=== PATIENT | male | born 2005 | race African-American/Black ===

== ENCOUNTER 2024-01-31 17:45 | Emergency (ER) | payer MEDICAID, SELFPAY ==
[2024-01-31 17:56] VITALS: BP 114/71; PULSE 97; RESP 18; TEMP 36.4; O2SAT 97; BMI 25.1
[2024-01-31] MEDS: Diphth,Pertus(ACell),Tet Adult 0.5 ML SYRINGE IM (18:22)
--- NOTE | 2024-01-31 18:27 | ED.WOUNDLAC ---
HPI - Wound/Laceration General Chief Complaint: Wound/Laceration Stated Complaint: finger lac Time Seen by Provider: 01/31/24 18:26 Source: patient and RN notes reviewed Mode of arrival: ambulatory Limitations: no limitations History of Present Illness ED Provider: Karly Martinez PA-C HPI narrative: This is a 18 year old male presents emergency complaints of right 2nd finger laceration which occurred just prior to arrival. Patient states that he was attempting to open up a door that was being held closed by a knife when suddenly the door open in the knife jabbed him into his right 2nd digit. He states that the area immediately start bleeding. He is unsure when his last tetanus shot was. Denies taking any medications prior to his arrival. Denies any numbness, tingling or weakness. He is right-handed. No other complaints or concerns at this time. Onset (ago): hour(s) Place: home Patient tetanus UTD: No Context: accidental Associated symptoms: none Related Data Allergies Allergy/AdvReac Type Severity Reaction Status Date / Time No Known Allergies Allergy Verified 01/31/24 17:57 Review of Systems Review of Systems: Yes all other systems are reviewed and are negative Constitutional: Constitutional: Reports as per [facility] Social History Social History Advance Directives: No Advance Directives Information Provided: No Do you have a plan to hurt others: No Plan Physical Exam Vital Signs: Vital Signs: Last Vital Signs Temp 97.6 F 01/31/24 18:33 Pulse 97 01/31/24 18:33 Resp 18 01/31/24 18:33 BP 114/71 01/31/24 18:33 Pulse Ox 97 01/31/24 18:33 O2 Del Method Room Air 01/31/24 18:33 BMI result Body Mass Index 25.1 Const: General: cooperative, comfortable and no acute distress Orientation/consciousness: patient oriented x3 Limitations: no limitations HEENT: Head: Yes normal to inspection, Yes normocephalic and Yes atraumatic Ears: hearing grossly normal bilaterally General nose exam: Normal external nose present Face and sinus: Yes normal facial exam Mouth: Normal oral and palatal mucosa present, oropharynx normal and moist mucous membranes Throat: Yes posterior oropharynx normal Eyes: General: appearance normal, both eyes and all related structures Eyelids: Yes eyelids normal Conjunctivae: conjunctivae normal Sclerae: sclerae normal Pupils: Equal, round and reactive pupils present EOM: EOMs intact bilaterally Neck: Neck: Yes normal visual inspection, Yes full ROM and Yes no lymphadenopathy Lymphatic: no lymphadenopathy noted Chest: Chest palpation & inspection: normal inspection of the chest Resp: Effort & Inspection: normal respiratory effort and able to speak in complete sentences Auscultation: clear to auscultation bilaterally, no crackles, no rales, no rhonchi and no wheezes Cardio: Rate: regular rate Rhythm: regular rhythm Heart sounds: S1 normal heart sound present and S2 normal heart sound present GI: Inspection: Yes normal to inspection Skin: Other: There is a 1 cm superficial laceration noted overlying the PIP of the right 2nd digit. Patient has full range of motion of the digit able to flex extend at the DIP, PIP. Able to make a fist without difficulty. Strong radial pulse. Distal sensation circulation intact. No active bleeding or surrounding erythema or warmth. General skin exam: no rashes or lesions noted Trauma: no lacerations or abrasions Wounds: no wounds Neuro: General: patient oriented x3 and moves all extremities Cranial nerves: Yes Equal, round and reactive pupils present Extrem: General: Yes normal to inspection Right upper extremity: normal to inspection Left upper extremity: normal to inspection Right lower extremity: normal to inspection Left lower extremity: normal to inspection Medications Administered Discontinued Medications Generic Name Dose Route Start Last Admin Trade Name Freq PRN Reason Stop Dose Admin Diphtheria/Tetanus/Acell Pertussis 0.5 ml 01/31/24 18:18 01/31/24 18:22 Diphth,Pertus(Acell),Tet Adult 0.5 Ml Syringe IM 01/31/24 18:19 0.5 ml .ONCE ONE Administration Medical Decision Making Medical Decision Making [facility] Narrative: This is a 18-year-old male who presents emergency department with complaints of right 2nd digit laceration which occurred just prior to arrival. This was an accidental injury. Right 2nd digit with superficial laceration. This area was cleansed, and repaired using Dermabond, see procedure note for further detail. Patient tolerated procedure well. Updated tetanus in the department today. Patient given return precautions. He has full range of motion of the finger, therefore tendon involvement especially due to superficial abrasion less likely. Finger placed in finger splint to prevent flexion of the finger to help heal. Advised to only wear this for the next 24 hours and as needed. He understands and agrees with plan. Patient stable for discharge. Differential Diagnosis Differential Diagnoses: The differential diagnosis associated with the presentation includes Abrasion, contusion, laceration Procedures Laceration Laceration 1: Site: hand Side (If applicable): right Size (cm): 1 Description: linear Depth: simple, single layer Pre-repair: wound explored and irrigated extensively Skin layer closed with: other (Dermabond) Orthopedic Splinting/Casting Injury #1: Side: right Upper Extremity Injury Location: finger Upper Extremity Immobilizer: finger (other) Discharge Plan Discharge Clinical Impression: Laceration Patient Disposition: Home, Self-Care Instructions: Skin Adhesive Care (ED) Additional Instructions: You were seen in the emergency department for a laceration to your right finger. We repaired this laceration to your skin glue. Keep area clean and dry. Watch for any signs of infection including but not limited to increased redness, swelling, drainage from the area. We applied a finger splint to your finger to prevent bending your finger for the first 24 hours as the wound continues to heal. If any new or worsening symptoms occur including but not limited to symptoms above, please return for re-evaluation. We updated your tetanus shot in the department. Stand Alone Forms: Work/School Release Interventions: ED Discharge Assessment Last Done: 01/31/24 18:33 Discharge Date/Time: 01/31/24 18:34 Print Language: Burundian
[2024-01-31 18:33] VITALS: BP 114/71; PULSE 97; RESP 18; TEMP 36.4; O2SAT 97
== END 2024-01-31 18:34 | disposition home or self-care (01) ==
PROVIDERS: Emergency Provider Emergency Medicine
DX: S61.210A Laceration without foreign body of right index finger without damage to nail, initial encounter (principal); W26.0XXA Contact with knife, initial encounter; Y93.89 Activity, other specified; Y92.9 Unspecified place or not applicable; Y99.9 Unspecified external cause status; Z23 Encounter for immunization
CPT/HCPCS: 12001; 29130; 90471; 90715; 99282; 99284

== ENCOUNTER 2024-02-02 18:02 | Emergency (ER) | payer MEDICAID, SELFPAY ==
[2024-02-02 18:20] VITALS: BP 116/68; PULSE 63; RESP 18; TEMP 36.8; O2SAT 97; BMI 28.4
--- NOTE | 2024-02-02 18:20 | ED.UPPEXIN ---
HPI - Extremity Injury (Upper) General Chief Complaint: Extremity Injury, Upper Stated Complaint: ?R index finger infected Time Seen by Provider: 02/02/24 18:23 Source: patient Mode of arrival: ambulatory Limitations: no limitations History of Present Illness ED Provider: SATHISH SUAREZ PA-C HPI narrative: 18 year old male with no significant pmhx present to the ED today for evaluation of possible finger infection. Patient was evaluated at [facility] 2 days ago after sustaining laceration to his right 2nd digit. His tetanus was updated at that time, lac was closed with dermabond, and he was discharged home. He presents today with concern for infection. Reports minimal drainage from the site along with increased pain with movement of the finger. He has not been taking any OTC pain med at home. Denies fevers, chills. Related Data Previous Rx's ?Medication ?Instructions ?Recorded cephalexin 500 mg capsule 500 mg PO BID 7 days #14 caps 02/02/24 Allergies Allergy/AdvReac Type Severity Reaction Status Date / Time No Known Allergies Allergy Verified 02/02/24 18:24 Review of Systems Review of Systems: Constitutional: No fever, chills, fatigue, night sweats, weight changes ENT/Mouth: No ear pain, hearing loss, nasal congestion, sinus pain, rhinorrhea, sore throat Eyes: No eye pain, swelling, redness, vision changes, discharge Cardio: No chest pain, palpitations, [place], orthopnea, peripheral edema Pulm: No SOB, cough, sputum, wheezing, dyspnea, hemoptysis GI: No nausea, vomiting, hematemesis, abdominal pain, diarrhea, constipation, hematochezia, melena : No irregular bleeding, dysuria, frequency, urgency, hesitancy, hematuria, flank pain, urinary flow changes, urinary incontinence or retention MSK: No back pain, neck pain, joint pain, myalgias Skin: No lesions, rashes, +redness to right index finger Neuro: No weakness, numbness, paresthesias, LOC, dizziness, headache Psych: No anxiety/panic, depression, SI/HI, AH/VH All other systems reviewed and are negative. [facility] Past Medical History Attestation statement: The following information was validated with the patient. Source: old records reviewed and nursing notes reviewed Social History Social History Advance Directives: No Advance Directives Information Provided: No Do you have a plan to hurt others: No Plan Physical Exam Vital Signs: Vital Signs: Last Vital Signs Temp 98.2 F 02/02/24 18:37 Pulse 63 02/02/24 18:37 Resp 18 02/02/24 18:37 BP 116/68 02/02/24 18:37 Pulse Ox 97 02/02/24 18:37 O2 Del Method Room Air 02/02/24 18:37 BMI result Body Mass Index 28.4 Vital signs stable, afebrile Const: General: cooperative, healthy appearing, comfortable and no acute distress Orientation/consciousness: patient oriented x3 Limitations: no limitations HEENT: Head: Yes normal to inspection, Yes No palpable skull fracture present, Yes normocephalic and Yes atraumatic Eyes: General: appearance normal, both eyes and all related structures Neck: Neck: Yes normal visual inspection Resp: Effort & Inspection: normal respiratory effort and able to speak in complete sentences Auscultation: clear to auscultation bilaterally Cardio: Rate: regular rate Rhythm: regular rhythm Skin: Other: + healing 1 cm laceration intact with minimal amount of surrounding erythema. No dehiscence. No active drainage or bleeding. No streaking. No pointing. FROM intact to right finger with pain elicited on flexion. NV intact distally. Neuro: General: patient oriented x3 Course Course Course Narrative: 1829-- Laceration with minimal warmth and erythema. No fluctuance to suggest abscess. Will send patient home with Keflex. Advised to keep the area clean dry and intact. May apply bacitracin or Neosporin. Patient has remained stable throughout ED visit today. Discussed worrisome signs and symptoms and when to return to the ED. All questions answered at this time. Patient is agreeable with disposition and stable for discharge. Medical Decision Making Medical Decision Making MDM Narrative: 18 year old male with no significant pmhx present to the ED today for evaluation of possible finger infection. Vital signs stable. Afebrile. Patient is nontoxic appearing and in NAD. On exam, there is healing 1 cm laceration intact with minimal amount of surrounding erythema. No dehiscence. No active drainage or bleeding. No streaking. No pointing. FROM intact to right finger with pain elicited on flexion. NV intact distally. Differential diagnosis includes abrasion, laceration, cellulitis. unlikely tenosynovitis, fracture, osteomyelitis. Plan for discharge. Differential Diagnosis Differential Diagnoses: The differential diagnosis associated with the presentation includes as above Admission/Observation Not indicated. Tests considered The following testing was considered but not selected: I considered obtaining labs and repeat xr however patient with noted superficial skin infection, no concern for deeper systemic infection, no warranted at that time. Prescription Management I considered prescription management with: Antibiotic (keflex) Social Determinants Patient?s care significantly limited by Social Determinants of Health including: Other Social Determinant of Health Critical Care Time Critical Care Time Critical Care Time: No Discharge Plan Discharge Clinical Impression: Cellulitis Qualifiers: Site of cellulitis: extremity Site of cellulitis of extremity: finger Laterality: right Qualified Code(s): L03.011 - Cellulitis of right finger Patient Disposition: Home, Self-Care Instructions: Cellulitis (ED) Additional Instructions: You have a superficial skin infection. Keflex is an antibiotic that has been sent to your pharmacy for treatment. Take this as prescribed and do not skip any doses as this may cause infection to persist or worsen. You may also apply bacitracin or neosporin to the area. You can purchase this over the counter at [employer] or [employer]. Return with new or worsening symptoms. In the case of an emergency call 911. Prescriptions: New cephalexin 500 mg capsule 500 mg PO BID 7 Days Qty: 14 0RF Stand Alone Forms: Work/School Release Interventions: ED Discharge Assessment Last Done: 02/02/24 18:37 Discharge Date/Time: 02/02/24 18:38 Print Language: Cypriot
[2024-02-02 18:37] VITALS: BP 116/68; PULSE 63; RESP 18; TEMP 36.8; O2SAT 97
== END 2024-02-02 18:38 | disposition home or self-care (01) ==
PROVIDERS: Emergency Provider Emergency Medicine
DX: L03.011 Cellulitis of right finger (principal)
CPT/HCPCS: 99282; 99283

== ENCOUNTER 2024-02-09 01:51 | Emergency (ER) | payer MEDICAID, SELFPAY ==
--- NOTE | ~2024-02-09 | XR_ITS ---
EXAMINATION: XR HAND, RIGHT CLINICAL INFORMATION: Crush injury. COMPARISON: None available. TECHNIQUE: PA, lateral, and oblique views of the right hand. FINDINGS: No acute fracture or malalignment. Bone mineralization is normal. Joints appear well-preserved. Soft tissues are unremarkable. No erosions. XR/XR hand RT min 3V IMPRESSION: Normal radiographs of the right hand.
[2024-02-09 01:55] VITALS: BP 117/63; PULSE 69; RESP 16; TEMP 36.8; O2SAT 98; BMI 27.5
[2024-02-09 03:04] VITALS: BP 111/58; PULSE 56; RESP 12; TEMP 36.4; O2SAT 98
--- NOTE | 2024-02-09 03:41 | ED_ITS ---
HPI - Extremity Problem General Chief complaint: Extremity Injury, Upper Stated complaint: rt finger bump Time Seen by Provider: 02/09/24 03:40 Source: patient Mode of arrival: ambulatory Limitations: no limitations History of Present Illness ED Provider: zoe VASQUEZ Narrative: Patient apparently had laceration right index finger about a week ago while at work today heavy box fell on it complaining of pain and swelling laceration is intact Related Data Previous Rx's ?Medication ?Instructions ?Recorded cephalexin 500 mg capsule 500 mg PO BID 7 days #14 caps 02/02/24 Allergies Allergy/AdvReac Type Severity Reaction Status Date / Time No Known Allergies Allergy Verified 02/09/24 01:57 Review of Systems 2 Review of Systems: Yes all other systems are reviewed and are negative PMFSH Social History Social History Advance Directives: No Advance Directives Information Provided: Yes Do you have a plan to hurt others: No Plan Physical Exam 2 Vital Signs: Vital Signs: Last Vital Signs Temp 97.6 F 02/09/24 04:06 Pulse 56 02/09/24 04:06 Resp 12 02/09/24 04:06 BP 111/58 L 02/09/24 04:06 Pulse Ox 98 02/09/24 04:06 O2 Del Method Room Air 02/09/24 04:06 BMI result Body Mass Index 27.5 Extrem: Hand/finger images: 1. Soft tissue swelling with intact laceration no bony deformity Medical Decision Making Independent Interpretation I performed an independent interpretation of an: Plain X-Ray Interpretation: Negative for fracture Radiology Impression Discussion of test interpretation with radiology: I have reviewed the radiologist's reading. Discharge Plan Discharge Clinical Impression: Contusion of right index finger Patient Disposition: Home, Self-Care Instructions: Contusion in Adults (ED) Additional Instructions: Your x-rays negative for fracture Tylenol/Motrin for pain Prescriptions: No Action cephalexin 500 mg capsule 500 mg PO BID 7 Days Qty: 14 0RF Stand Alone Forms: Work/School Release Interventions: ED Discharge Assessment Last Done: 02/09/24 04:06 Discharge Date/Time: 02/09/24 04:07 Print Language: Lithuanian
[2024-02-09 04:06] VITALS: BP 111/58; PULSE 56; RESP 12; TEMP 36.4; O2SAT 98
== END 2024-02-09 04:07 | disposition home or self-care (01) ==
PROVIDERS: Emergency Provider Internal Medicine
DX: S60.021A Contusion of right index finger without damage to nail, initial encounter (principal); W20.8XXA Other cause of strike by thrown, projected or falling object, initial encounter; M79.644 Pain in right finger(s); Y93.9 Activity, unspecified; Y92.59 Other trade areas as the place of occurrence of the external cause; Y99.0 Civilian activity done for income or pay
CPT/HCPCS: 73130; 99283

== ENCOUNTER 2024-02-22 21:47 | Emergency (ER) | payer MEDICAID, SELFPAY ==
[2024-02-22 22:12] VITALS: BP 131/70; PULSE 67; RESP 16; TEMP 36.4; O2SAT 99; BMI 27.8
[2024-02-22 22:30] LABS: MANUAL DIFF FLAG NO
[2024-02-22 22:32] LABS: Basophils Absolute Auto 0.1 X10*3/uL (0.0-0.2); Basophils Percent Auto 1.3 % (0-2); Eosinophils Absolute Auto 0.1 X10*3/uL (0.0-0.4); Eosinophils Percent Auto 2.4 % (0-4); Hematocrit 42.6 % (42.0-52.0); Hemoglobin 15.1 g/dl (14.0-18.0); Lymphocytes Absolute Auto 2.1 X10*3/uL (1.2-4.9); Lymphocytes Percent Auto 44.9 % (20-40); Mean Corpuscular HGB Conc 35.4 g/dl (31.0-36.0); Mean Corpuscular Hemoglobin 29.7 pg (27.0-33.0); Mean Corpuscular Volume 83.9 fL (80.0-98.0); Mean Platelet Volume 12.6 fL (9.4-12.4); Monocytes Absolute Auto 0.5 X10*3/uL (0.1-1.2); Monocytes Percent Auto 10.8 % (2-11); Neutrophils Absolute Auto 1.9 x10*3/uL (2.0-8.3); Neutrophils Percent Auto 40.6 % (45-73); Platelet Count 215 X10*3/uL (160-400); Red Blood Count 5.08 X10*6/uL (4.60-5.80); Red Cell Distribution Width 12.5 % (11.0-16.0); White Blood Count 4.6 X10*3/uL (4.8-10.8)
[2024-02-22 22:33] LABS: Appearance Urine Clear; Color Urine Yellow; Glucose Urine UA Negative (Negative); Leukocyte Esterase Urine Negative (Negative); Nitrite Urine Negative (Negative); PH 7.5 (5.0-9.0); Specific Gravity - Urine 1.015 (1.005-1.025); Urine Blood Negative (Negative); Urine Ketones Negative (Negative); Urine Protein Negative (Neg-Trace)
[2024-02-22 22:46] LABS: Alanine Aminotransferase 19 U/L (0-40); Albumin Level 4.9 g/dL (3.5-5.0); Alkaline Phosphatase 79 U/L (39-117); Anion Gap 12 (12-20); Aspartate Amino Transferase 18 U/L (5-37); Bilirubin Total 0.8 mg/dL (0.0-1.0); Blood Urea Nitrogen 11 mg/dL (9-16); Calcium 9.7 mg/dL (8.4-10.2); Carbon Dioxide 30 mmol/L (22-29); Chloride 103 mmol/L (96-108); Creatinine Clr Calc Pharmacy 150.2; Estimated Glomerular Filt Rate > 60; Glucose Random 83 mg/dL (60-115); Lipase 24 U/L (8-78); Potassium 4.3 mmol/L (3.3-5.1); Sodium 141 mmol/L (135-145); Total Protein 7.8 g/dL (6.5-8.0)
--- NOTE | 2024-02-22 23:02 | ED.ABDPAIN ---
HPI - Abdominal Pain General Chief Complaint: Abdominal Pain Stated Complaint: Stomach Pain, Vomiting Time Seen by Provider: 02/22/24 22:40 Source: patient Mode of arrival: ambulatory Limitations: no limitations History of Present Illness ED Provider: KYLE HPI narrative: 18 yo male with no sig PMH vomited earlier today then went to work and ate chicken teriyaki and had more n/v and then some diarrhea. no travel, abx use, no fevers, all of his n/v/d and cramping started at once. He does not want IV or IV medications. Came from [facility]. MD elicited complaint: abdominal pain Pertinent past history: none Onset (ago): hour(s) (several) Pain Consistency: intermittent Location: diffuse Severity: mild Quality: cramping Radiation: none Migration to: no migration Exacerbating factors: eating Relieving factors: nothing Associated symptoms: nausea, vomiting and diarrhea Related Data Previous Rx's ?Medication ?Instructions ?Recorded cephalexin 500 mg capsule 500 mg PO BID 7 days #14 caps 02/02/24 ondansetron 4 mg disintegrating 4 mg PO Q8H PRN nausea and 02/22/24 tablet vomiting #20 tabs Allergies Allergy/AdvReac Type Severity Reaction Status Date / Time No Known Allergies Allergy Verified 02/22/24 22:12 Review of Systems Review of Systems Constitutional : No Weight loss, No Fever, No Chills ENT/Mouth : No sore throat, No Rhinorrhea Eyes: No Swelling, No Redness Cardiovascular : No Chest Pain, No SOB, NoEdema Respiratory : No Cough, No Sputum, No Wheezing Gastrointestinal : Positive Nausea, Positive Vomiting, positive Diarrhea, positive abdominal Pain, No Hematochezia, No Melena Genitourinary : No Dysuria, No Urinary Frequency, No Hematuria, No Urgency Musculoskeletal : No joint pain, No Myalgias, No Joint Swelling Skin : No Skin Lesions, No rash Neuro : No Weakness, No Numbness, No Dizziness, No Headache Psych : No Anxiety/Panic, No Depression All other systems reviewed and are negative. [facility] Past Medical History Attestation statement: The following information was validated with the patient. Source: old records reviewed Medical History No pertinent past medical history Social History Social History (Updated 02/22/24 @ 23:18 by Madeline [place], DO) Patient Tobacco Use Status: Never used Tobacco Physical Exam ED Vital Signs: Vital Signs - 24 hr 02/22/24 22:12 Temperature 97.6 F Pulse Rate 67 Respiratory Rate 16 Blood Pressure 131/70 Pulse Oximetry 99 Oxygen Delivery Method Room Air BMI result Body Mass Index 27.8 Appearance: Alert. Oriented X3. No acute distress. Eyes: Pupils equal, round and reactive to light. ENT: Pharynx normal. Neck: Normal inspection. Neck supple. CVS: Normal heart rate and rhythm. Pulses normal. Respiratory: No respiratory distress. Breath sounds normal. Abdomen: Soft and nontender. Skin: Skin warm and dry. Normal skin color. Normal skin turgor. Extremities: No lower extremity edema. No calf ttp Neuro: Oriented X 3. No motor deficit. No sensory deficit. Medical Decision Making Medical Decision Making [facility] Narrative: 18 yo male with no sig PMH works at [employer] had cramps n/v/d no travel or abx use is not toxic no fevers abdomen is benign - everything started at once no localized ttp doubt infection. At this time offered IV medications but he refused - will give zofran and immodium Differential Diagnosis Differential Diagnoses: The differential diagnosis associated with the presentation includes viral syndrome Admission/Observation Consideration of admission/observation: Escalation of care including admission/observation considered tolerating PO not toxic stable for DC Lab Data [facility] Lab Attestation statement: I reviewed the patient's lab results. 02/22/24 22:25 02/22/24 22:25 Labs: Lab Results 02/22/24 Range/Units 22:25 WBC 4.6 L (4.8-10.8) X10*3/uL RBC 5.08 (4.60-5.80) X10*6/uL Hgb 15.1 (14.0-18.0) g/dl Hct 42.6 (42.0-52.0) % MCV 83.9 (80.0-98.0) fL MCH 29.7 (27.0-33.0) pg MCHC 35.4 (31.0-36.0) g/dl RDW 12.5 (11.0-16.0) % Plt Count 215 (160-400) X10*3/uL MPV 12.6 H (9.4-12.4) fL Immature Gran % (Auto) 0.0 (0.0-0.4) % Neut % (Auto) 40.6 L (45-73) % Lymph % (Auto) 44.9 H (20-40) % [place] % (Auto) 10.8 (2-11) % Eos % (Auto) 2.4 (0-4) % Baso % (Auto) 1.3 (0-2) % Lymph # (Auto) 2.1 (1.2-4.9) X10*3/uL [place] # (Auto) 0.5 (0.1-1.2) X10*3/uL Eos # (Auto) 0.1 (0.0-0.4) X10*3/uL Baso # (Auto) 0.1 (0.0-0.2) X10*3/uL Abs Immat Gran (auto) 0.00 (0.00-0.03) X10*3/uL Absolute Neuts (auto) 1.9 L (2.0-8.3) x10*3/uL Absolute Nucleated RBC 0.000 (0.0-0.012) X10*3/uL Nucleated RBC % (auto) 0.0 (0.0-0.2) /100WBC Sodium 141 (135-145) mmol/L Potassium 4.3 (3.3-5.1) mmol/L Chloride 103 (96-108) mmol/L Carbon Dioxide 30 H (22-29) mmol/L Anion Gap 12 (12-20) BUN 11 (9-16) mg/dL Creatinine 0.91 (0.5-1.4) mg/dL Estim Creat Clear Calc 150.2 Estimated GFR > 60 Random Glucose 83 (60-115) mg/dL Calcium 9.7 (8.4-10.2) mg/dL Total Bilirubin 0.8 (0.0-1.0) mg/dL AST 18 (5-37) U/L ALT 19 (0-40) U/L Alkaline Phosphatase 79 (39-117) U/L Total Protein 7.8 (6.5-8.0) g/dL Albumin 4.9 (3.5-5.0) g/dL Lipase 24 (8-78) U/L Urine Color Yellow Urine Appearance Clear Urine pH 7.5 (5.0-9.0) Ur Specific [place] 1.015 (1.005-1.025) Urine Protein Negative (Neg-Trace) mg/dL Urine Glucose (UA) Negative (Negative) mg/dL Urine Ketones Negative (Negative) mg/dL Urine Blood Negative (Negative) Urine Nitrite Negative (Negative) Ur Leukocyte Esterase Negative (Negative) Influenza Type A (PCR) NEGATIVE (Negative) Influenza Type B (PCR) NEGATIVE (Negative) RSV RNA Qual (PCR) NEGATIVE (Negative) SARS-CoV-2 RNA (RT-PCR) NEGATIVE (Negative) Prescription Management I considered prescription management with: Other Discharge Plan Discharge Clinical Impression: Nausea vomiting and diarrhea Patient Disposition: Home, Self-Care Instructions: Acute Nausea and Vomiting (ED), Acute Diarrhea (ED) Additional Instructions: slight decrease in white blood cells likely due to virus can repeat with your doctor in 1 week bland diet for 24 hours stay hydrated drink plenty of fluids return for worsening symptoms or concerns - fevers, pain, bloody stools Prescriptions: New ondansetron 4 mg tablet,disintegrating 4 mg PO Q8H PRN (Reason: nausea and vomiting) Qty: 20 0RF No Action cephalexin 500 mg capsule 500 mg PO BID 7 Days Qty: 14 0RF Stand Alone Forms: Work/School Release Print Language: Trinidadian
[2024-02-22 23:10] LABS: Influenza A PCR NEGATIVE (Negative); Influenza B PCR NEGATIVE (Negative); Resp Syncy Virus RNA Qual PCR NEGATIVE (Negative); SARS COV2 PCR INHOUSE NEGATIVE (Negative)
[2024-02-22 23:47] VITALS: BP 117/61; PULSE 55; RESP 21; O2SAT 98
[2024-02-22] MEDS: Diphenoxylate/Atrop 2.5/0.025 TABLET 1 TAB PO (23:47)
[2024-02-22] MEDS: Ondansetron ODT 4 MG TAB.RAPDIS TRANSLINGU (23:47)
[2024-02-22 23:50] VITALS: BP 117/61; PULSE 55; RESP 21; TEMP 36.9; O2SAT 98
== END 2024-02-22 23:50 | disposition home or self-care (01) ==
PROVIDERS: Emergency Provider Emergency Medicine
DX: R11.2 Nausea with vomiting, unspecified (principal); R19.7 Diarrhea, unspecified; Z03.818 Encounter for observation for suspected exposure to other biological agents ruled out
CPT/HCPCS: 0241U; 36415; 80053; 81003; 83690; 85025; 99283

== ENCOUNTER 2024-03-15 20:42 | Emergency (ER) | payer MEDICAID, SELFPAY ==
--- NOTE | ~2024-03-15 | CT_ITS ---
EXAMINATION: CT ABDOMEN AND PELVIS WITHOUT CONTRAST CLINICAL INFORMATION: Abdominal pain, rule out appendicitis COMPARISON: None available. TECHNIQUE: Multidetector volumetric imaging was performed from the superior aspect of the liver through the pubic symphysis. Sagittal and coronal reformatted images were obtained on the technologist's workstation. This CT examination was performed using dose optimization techniques as appropriate, variously including the following: *Automated exposure control *Adjustment of mA and/or kV according to patient size (this includes techniques or standardized protocols for targeted exams where dose is matched to indication/reason for exam; i.e. extremities or head) *Use of iterative reconstruction technique DLP: 558 mGy-cm FINDINGS: Lack of IV contrast markedly limits evaluation. LUNG BASES: Unremarkable. ABDOMINAL AND PELVIC WALL: Unremarkable. LIVER AND BILIARY TREE: Unremarkable. GALLBLADDER: Unremarkable. PANCREAS: Unremarkable. SPLEEN: Unremarkable. ADRENAL GLANDS: Unremarkable. KIDNEYS AND URETERS: Unremarkable. GASTROINTESTINAL TRACT: Unremarkable Appendix is within normal limits. VASCULAR: Unremarkable. LYMPH NODES/PERITONEUM: No lymphadenopathy. FREE FLUID: None. BLADDER: Unremarkable. PELVIC VISCERA: Unremarkable. OSSEOUS STRUCTURES: Unremarkable. CT/CT abdomen pelvis wo IV con IMPRESSION: * Lack of IV contrast markedly limits evaluation. * No acute intra-abdominal abnormality. Appendix is within normal limits.
[2024-03-15 20:58] VITALS: BP 127/60; PULSE 71; RESP 17; TEMP 36.6; O2SAT 98; BMI 27.9
[2024-03-15 21:29] LABS: MANUAL DIFF FLAG NO
[2024-03-15 21:45] LABS: Basophils Absolute Auto 0.1 X10*3/uL (0.0-0.2); Basophils Percent Auto 1.3 % (0-2); Eosinophils Absolute Auto 0.1 X10*3/uL (0.0-0.4); Eosinophils Percent Auto 2.1 % (0-4); Hematocrit 42.9 % (42.0-52.0); Hemoglobin 15.4 g/dl (14.0-18.0); Imm Gran Abs Auto 0.01 X10*3/uL (0.00-0.03); Imm Gran Pct Auto 0.2 % (0.0-0.4); Lymphocytes Absolute Auto 1.8 X10*3/uL (1.2-4.9); Lymphocytes Percent Auto 38.1 % (20-40); Mean Corpuscular HGB Conc 35.9 g/dl (31.0-36.0); Mean Corpuscular Hemoglobin 30.2 pg (27.0-33.0); Mean Corpuscular Volume 84.1 fL (80.0-98.0); Mean Platelet Volume 12.7 fL (9.4-12.4); Monocytes Absolute Auto 0.5 X10*3/uL (0.1-1.2); Monocytes Percent Auto 10.8 % (2-11); Neutrophils Absolute Auto 2.2 x10*3/uL (2.0-8.3); Neutrophils Percent Auto 47.5 % (45-73); Platelet Count 218 X10*3/uL (160-400); Red Cell Distribution Width 12.5 % (11.0-16.0); White Blood Count 4.7 X10*3/uL (4.8-10.8)
--- NOTE | 2024-03-15 21:48 | ED_ITS ---
HPI - Nausea/Vomiting/Diarrhea General Chief complaint: Nausea/Vomiting/Diarrhea Stated complaint: vomiting/fever Time Seen by Provider: 03/15/24 21:22 Source: patient Mode of arrival: ambulatory Limitations: no limitations History of Present Illness ED Provider: DR. Garcia HPI Narrative: 18-year-old male was otherwise healthy presented today for evaluation of abdominal pain associated with nausea, vomiting and nonbloody watery diarrhea started since 16:00, patient deny eating bad food, no recent travel, no recent use of antibiotic, no other sick contacts. Patient is complaining of diffuse abdominal pain mostly in the epigastric area with no radiation, slight right lower quadrant abdominal pain, never had intra- abdominal surgery, passing flatus, last bowel movement was while waiting to be seen in the waiting room was nonbloody yellowish loose stool. Related Data Previous Rx's ?Medication ?Instructions ?Recorded cephalexin 500 mg capsule 500 mg PO BID 7 days #14 caps 02/02/24 ondansetron 4 mg disintegrating 4 mg PO Q8H PRN nausea and 02/22/24 tablet vomiting #20 tabs Allergies Allergy/AdvReac Type Severity Reaction Status Date / Time No Known Allergies Allergy Verified 03/15/24 21:01 Review of Systems 2 Review of Systems: All other systems are reviewed and are negative Constitutional: Reports as per HPI and Reports no additional constitutional complaints Eyes: Reports as per HPI and Reports no additional eye complaints Reports system reviewed and no additional complaints, except as documented Cardiovascular: Reports as per HPI and Reports no additional cardiovascular complaints Respiratory: Reports as per HPI and Reports no additional respiratory complaints Gastrointestinal: Reports as per HPI and Reports no additional gastrointestinal complaints Genitourinary: Reports no additional female genitourinary complaints Musculoskeletal: Reports no additional musculoskeletal complaints Skin/Breast: Reports system reviewed and no additional complaints, except as docu Psychiatric: Reports no additional psychiatric complaints Endocrine: Reports no additional endocrine complaints Hematologic/Lymphatic: Reports no additional hematologic/lymphatic complaints Allergic/Immunologic: Reports no additional allergic/immunologic complaints Reports system reviewed and no additional complaints, except as documented and Reports Abnormal speech present [facility] Past Medical History Medical History No pertinent past medical history Social History Social History Patient Tobacco Use Status: Never used Tobacco Smoked in Last 30 Days: No Use of substances other than those prescribed or required for medical reasons: Yes Substance Use Type: Marijuana Substance Use Frequency: Chronic Longstanding Advance Directives: No Advance Directives Information Provided: No Do you have a plan to hurt others: No Plan Physical Exam 2 Vital Signs: Vital Signs: Last Vital Signs Temp 97.8 F 03/15/24 20:58 Pulse 67 03/15/24 21:53 Resp 18 03/15/24 21:53 BP 122/77 03/15/24 21:53 Pulse Ox 98 03/15/24 21:53 O2 Del Method Room Air 03/15/24 20:58 BMI result Body Mass Index 27.9 Vital signs have been reviewed and appear to be correct. Blood pressure elevated. Heart rate normal. Respiratory rate normal. Temperature normal. Oxygen saturation normal. Appearance: Alert. Oriented X3. No acute distress. Head: Normal external exam. Normocephalic. Atraumatic. No Levi signs noted. No raccoon eyes noted Eyes: PERRLA. EOMI. Conjunctiva and sclera normal. Eyelids normal. ENT: TM's Normal. Pharynx normal. Uvula midline. Moist mucous membranes. No trismus noted. No drooling noted. No muffled voice noted. Neck: Normal inspection. Neck supple. FROM. No adenopathy. Thyroid Normal. No meningeal signs. No neck mass noted. CVS: Normal heart rate and rhythm. Heart sound normal. No murmurs noted. Pulses normal throughout. Respiratory: No respiratory distress. Painless inspiration. Breath sounds normal. No wheezes/rales/rhonchi noted. Chest nontender. No accessory muscle usage noted or decreased air movement noted. Abdomen: Mild epigastric tenderness, no rebound tenderness, no guarding. Mild right lower quadrant tenderness. Bowel sounds normal in all 4 quadrants. No distention noted. No organomegaly noted. No visible injury noted. Back: No CVA tenderness. Full range of motion noted. Skin: Skin warm and dry. Normal skin color. Normal skin turgor. No rashes/lesions/lacerations noted. Extremities: No lower extremity edema. Extremities exhibit normal range of motion. Extremities nontender. Neuro: Oriented X 3. Cranial nerve exam: II-XII are grossly intact No motor deficit. No sensory deficit. Reflexes normal. Course Reevaluation(s) Reevaluation #1: Patient feels better, able to tolerate p.o. intake without nausea and vomiting, repeat abdominal exam showed improvement of the epigastric tenderness, CT reveals no evidence of acute appendicitis or any other acute intra-abdominal pathology. Patient is declining IV access. But overall he feels better discharge. Time: 22:37 Medications Administered Generic Name Dose Route Start Last Admin Trade Name Freq PRN Reason Stop Dose Admin Sodium Chloride 1,000 mls @ 999 mls/hr 03/15/24 21:50 03/15/24 22:05 Ns IV 03/15/24 22:50 Not Given .Q1H1M ONE Discontinued Medications Generic Name Dose Route Start Last Admin Trade Name Freq PRN Reason Stop Dose Admin Al Hydroxide/Mg Hydroxide 30 ml 03/15/24 21:51 03/15/24 22:05 Magnesium Hydrox/Alum Hydrox 30 Ml Oral.Susp PO 03/15/24 21:52 Not Given ONCE ONE Famotidine 20 mg 03/15/24 21:50 03/15/24 22:05 Famotidine/Pf 20 Mg/2 Ml Vial IVPUSH 03/15/24 21:51 Not Given ONCE ONE Ondansetron HCl 4 mg 03/15/24 21:50 03/15/24 22:05 Ondansetron Hcl 4 Mg/2 Ml Vial IVPUSH 03/15/24 21:51 Not Given ONCE ONE Medical Decision Making Differential Diagnosis Differential Diagnoses: The differential diagnosis associated with the presentation includes (Appendicitis, colitis, gastroenteritis, food poisoning, electrolyte derangement, viral infection, severe anemia, kidney stone, pyelonephritis, acute cholecystitis.) Admission/Observation Consideration of admission/observation: Escalation of care including admission/observation considered Lab Data MDM Lab Attestation statement: I reviewed the patient's lab results. 03/15/24 21:24 03/15/24 21:24 Labs: Lab Results 03/15/24 Range/Units 21:24 WBC 4.7 L (4.8-10.8) X10*3/uL RBC 5.10 (4.60-5.80) X10*6/uL Hgb 15.4 (14.0-18.0) g/dl Hct 42.9 (42.0-52.0) % MCV 84.1 (80.0-98.0) fL MCH 30.2 (27.0-33.0) pg MCHC 35.9 (31.0-36.0) g/dl RDW 12.5 (11.0-16.0) % Plt Count 218 (160-400) X10*3/uL MPV 12.7 H (9.4-12.4) fL Immature Gran % (Auto) 0.2 (0.0-0.4) % Neut % (Auto) 47.5 (45-73) % Lymph % (Auto) 38.1 (20-40) % [place] % (Auto) 10.8 (2-11) % Eos % (Auto) 2.1 (0-4) % Baso % (Auto) 1.3 (0-2) % Lymph # (Auto) 1.8 (1.2-4.9) X10*3/uL [place] # (Auto) 0.5 (0.1-1.2) X10*3/uL Eos # (Auto) 0.1 (0.0-0.4) X10*3/uL Baso # (Auto) 0.1 (0.0-0.2) X10*3/uL Abs Immat Gran (auto) 0.01 (0.00-0.03) X10*3/uL Absolute Neuts (auto) 2.2 (2.0-8.3) x10*3/uL Absolute Nucleated RBC 0.000 (0.0-0.012) X10*3/uL Nucleated RBC % (auto) 0.0 (0.0-0.2) /100WBC Sodium 141 (135-145) mmol/L Potassium 4.0 (3.3-5.1) mmol/L Chloride 105 (96-108) mmol/L Carbon Dioxide 28 (22-29) mmol/L Anion Gap 12 (12-20) BUN 8 L (9-16) mg/dL Creatinine 1.00 (0.5-1.4) mg/dL Estim Creat Clear Calc 136.8 Estimated GFR > 60 Random Glucose 74 (60-115) mg/dL Calcium 9.7 (8.4-10.2) mg/dL Total Bilirubin 0.6 (0.0-1.0) mg/dL AST 16 (5-37) U/L ALT 12 (0-40) U/L Alkaline Phosphatase 79 (39-117) U/L Total Protein 7.7 (6.5-8.0) g/dL Albumin 4.8 (3.5-5.0) g/dL Lipase 18 (8-78) U/L Influenza Type A (PCR) NEGATIVE (Negative) Influenza Type B (PCR) NEGATIVE (Negative) RSV RNA Qual (PCR) NEGATIVE (Negative) SARS-CoV-2 RNA (RT-PCR) NEGATIVE (Negative) Independent Interpretation I performed an independent interpretation of an: CT Scan (Abdomen and pelvis: No acute intra-abdominal pathology.) Radiology Impression Discussion of test interpretation with radiology: I have reviewed the radiologist's reading. Discharge Plan Discharge Clinical Impression: Gastroenteritis Patient Disposition: Home, Self-Care Instructions: Gastroenteritis (ED) Prescriptions: No Action cephalexin 500 mg capsule 500 mg PO BID 7 Days Qty: 14 0RF ondansetron 4 mg tablet,disintegrating 4 mg PO Q8H PRN (Reason: nausea and vomiting) Qty: 20 0RF Stand Alone Forms: Work/School Release Print Language: Cook Islander
[2024-03-15 21:52] LABS: Alanine Aminotransferase 12 U/L (0-40); Albumin Level 4.8 g/dL (3.5-5.0); Alkaline Phosphatase 79 U/L (39-117); Anion Gap 12 (12-20); Aspartate Amino Transferase 16 U/L (5-37); Bilirubin Total 0.6 mg/dL (0.0-1.0); Blood Urea Nitrogen 8 mg/dL (9-16); Calcium 9.7 mg/dL (8.4-10.2); Carbon Dioxide 28 mmol/L (22-29); Chloride 105 mmol/L (96-108); Glucose Random 74 mg/dL (60-115); Lipase 18 U/L (8-78); Sodium 141 mmol/L (135-145); Total Protein 7.7 g/dL (6.5-8.0)
[2024-03-15 21:53] VITALS: BP 122/77; PULSE 67; RESP 18; O2SAT 98
--- NOTE | 2024-03-15 22:05 | PC.NURSE ---
At this time, pt refusing all further assessments and treatments due to fear of needles. made aware.
[2024-03-15 22:07] LABS: Influenza A PCR NEGATIVE (Negative); Influenza B PCR NEGATIVE (Negative); Resp Syncy Virus RNA Qual PCR NEGATIVE (Negative); SARS COV2 PCR INHOUSE NEGATIVE (Negative)
[2024-03-15 22:13] LABS: Creatinine Clr Calc Pharmacy 136.8; Estimated Glomerular Filt Rate > 60
[2024-03-15 22:43] VITALS: BP 122/77; PULSE 67; RESP 18; TEMP 36.8; O2SAT 98
== END 2024-03-15 22:43 | disposition home or self-care (01) ==
PROVIDERS: Emergency Provider Emergency Medicine
DX: K52.9 Noninfective gastroenteritis and colitis, unspecified (principal); R10.13 Epigastric pain; Z03.818 Encounter for observation for suspected exposure to other biological agents ruled out; R11.2 Nausea with vomiting, unspecified
CPT/HCPCS: 0241U; 36415; 74176; 80053; 83690; 85025; 99284

== ENCOUNTER 2024-03-28 22:46 | Emergency (ER) | payer MEDICAID, SELFPAY ==
[2024-03-28 22:53] VITALS: BP 141/85; PULSE 84; RESP 18; TEMP 36.7; O2SAT 97; BMI 27.4
[2024-03-28 23:11] LABS: Hematocrit 45.5 % (42.0-52.0); Hemoglobin 16.1 g/dl (14.0-18.0); Mean Corpuscular HGB Conc 35.4 g/dl (31.0-36.0); Mean Corpuscular Volume 84.9 fL (80.0-98.0); Mean Platelet Volume 12.2 fL (9.4-12.4); Platelet Count 218 X10*3/uL (160-400); Red Blood Count 5.36 X10*6/uL (4.60-5.80); Red Cell Distribution Width 12.5 % (11.0-16.0); White Blood Count 5.1 X10*3/uL (4.8-10.8)
[2024-03-28 23:26] LABS: Alanine Aminotransferase 22 U/L (0-40); Albumin Level 4.8 g/dL (3.5-5.0); Alkaline Phosphatase 84 U/L (39-117); Anion Gap 13 (12-20); Aspartate Amino Transferase 23 U/L (5-37); Bilirubin Total 0.8 mg/dL (0.0-1.0); Blood Urea Nitrogen 12 mg/dL (9-16); Calcium 10.1 mg/dL (8.4-10.2); Carbon Dioxide 26 mmol/L (22-29); Chloride 104 mmol/L (96-108); Creatinine Clr Calc Pharmacy 142.1; Estimated Glomerular Filt Rate > 60; Glucose Random 98 mg/dL (60-115); Lipase 24 U/L (8-78); Potassium 4.2 mmol/L (3.3-5.1); Sodium 139 mmol/L (135-145); Total Protein 8.1 g/dL (6.5-8.0)
[2024-03-28 23:29] LABS: COVID-19 Test Negative (Negative); IDNOW Serial# 08D9AD1C; IDNOW Serial# 152EDE1D; Influenza A Negative (Negative); Influenza B2 Negative (Negative)
== END 2024-03-29 01:09 | disposition left against medical advice (07) ==
PROVIDERS: Emergency Provider Emergency Medicine
DX: K29.70 Gastritis, unspecified, without bleeding (principal); R11.2 Nausea with vomiting, unspecified; Z53.21 Procedure and treatment not carried out due to patient leaving prior to being seen by health care provider; Z03.818 Encounter for observation for suspected exposure to other biological agents ruled out
CPT/HCPCS: 80053; 83690; 85027; 87502; 87635; 99281

== ENCOUNTER 2024-04-27 21:47 | Emergency (ER) | payer MEDICAID, SELFPAY ==
--- NOTE | ~2024-04-27 | XR_ITS ---
EXAMINATION: XR THORACIC SPINE CLINICAL INFORMATION: Pain. Work injury. COMPARISON: None. TECHNIQUE: AP and lateral views of the thoracic spine FINDINGS: Vertebral body heights are normal. Alignment is anatomic without spondylolisthesis. Intervertebral disc heights are well-maintained. No degenerative disc disease. Paraspinal soft tissues are unremarkable. No osseous lesions are identified. XR/XR thoracic spine 2V IMPRESSION: Normal radiographs of the thoracic spine. Electronically signed by: Daniele Rivero MD 04/27/2024 10:36 PM EDT
[2024-04-27 21:58] VITALS: BP 123/65; PULSE 71; RESP 16; TEMP 36.6; O2SAT 99; BMI 27.6
[2024-04-27] MEDS: Ibuprofen 600 MG TABLET PO (23:52)
[2024-04-27 23:59] VITALS: BP 128/64; PULSE 74; RESP 16; TEMP 36.7; O2SAT 99
[2024-04-28] VITALS: BP 0/0; PULSE 0; RESP 20; TEMP -17.7; TEMP 0; O2SAT 0
--- NOTE | 2024-04-30 02:30 | ED_ITS ---
HPI - Back Pain/Injury General Chief Complaint: Back Pain/Injury Stated Complaint: back pain Time Seen by Provider: 04/27/24 23:08 Source: patient Mode of arrival: ambulatory Limitations: no limitations History of Present Illness ED Provider: zoe VASQUEZ Narrative: Patient works in [employer] complaining of pain in mid lower back for last few days does not know exactly when pain started but been having pain for last 2 days no radiation of the pain no motor weakness no paresthesia patient has had a thoracic spine x-ray prior to my evaluation which was negative Related Data Previous Rx's ?Medication ?Instructions ?Recorded cephalexin 500 mg capsule 500 mg PO BID 7 days #14 caps 02/02/24 ondansetron 4 mg disintegrating 4 mg PO Q8H PRN nausea and 02/22/24 tablet vomiting #20 tabs ibuprofen 600 mg tablet 600 mg PO Q6H PRN fever or pain 04/27/24 #30 tabs Allergies Allergy/AdvReac Type Severity Reaction Status Date / Time No Known Allergies Allergy Verified 04/27/24 22:00 Review of Systems Review of Systems: Yes all other systems are reviewed and are negative [facility] Past Medical History Medical History No pertinent past medical history Social History Social History Patient Tobacco Use Status: Never used Tobacco Substance Use Type: Marijuana Advance Directives: No Advance Directives Information Provided: No Physical Exam Vital Signs: Vital Signs: Last Vital Signs Temp 0 F L 04/28/24 00:00 Pulse 0 L 04/28/24 00:00 Resp 20 04/28/24 00:00 BP 0/0 L 04/28/24 00:00 Pulse Ox 0 L 04/28/24 00:00 O2 Del Method Room Air 04/27/24 23:59 BMI result Body Mass Index 27.6 Appearance: Alert. Oriented X3. No acute distress. Eyes: PERRLA, No Nystagmus ENT: Pharynx normal. Oral Mucosa moist Neck: Normal inspection. Neck supple. CVS: Normal heart rate and rhythm. Pulses normal. Respiratory: No respiratory distress. Equal air entry bilateral, no wheezing/rales/rhonchi Abdomen: Soft and nontender. Bowel sounds are present, no mass palpable, no CVA tenderness back: Diffuse tenderness in paraspinal areas L1-L4 no midline tenderness Skin: Skin warm and dry. Normal skin color. Normal skin turgor. Extremities: No lower extremity edema. No calf tenderness SLR negative bilaterally Neuro: Oriented X 3. No motor deficit. No sensory deficit.No cerebellar signs , cranial nerves II-XII intact Medications Administered Discontinued Medications Generic Name Dose Route Start Last Admin Trade Name Freq PRN Reason Stop Dose Admin Ibuprofen 600 mg 04/27/24 23:27 04/27/24 23:52 Ibuprofen 600 Mg Tablet PO 04/27/24 23:28 600 mg ONCE ONE Administration Medical Decision Making Medical Decision Making [facility] Narrative: Patient with diffuse back pain no focal deficit noticed no focal tenderness disc harge patient home on ibuprofen Independent Interpretation I performed an independent interpretation of an: Plain X-Ray Radiology Impression Discussion of test interpretation with radiology: I have reviewed the radiologist's reading. Discharge Plan Discharge Clinical Impression: Strain of lumbar region Patient Disposition: Home, Self-Care Instructions: Low Back Strain (ED) Additional Instructions: Care and cautions as advised Ibuprofen for pain Prescriptions: New ibuprofen 600 mg tablet 600 mg PO Q6H PRN (Reason: fever or pain) Qty: 30 0RF No Action cephalexin 500 mg capsule 500 mg PO BID 7 Days Qty: 14 0RF ondansetron 4 mg tablet,disintegrating 4 mg PO Q8H PRN (Reason: nausea and vomiting) Qty: 20 0RF Stand Alone Forms: Work/School Release Interventions: ED Discharge Assessment Last Done: 04/28/24 00:00 Discharge Date/Time: 04/28/24 00:02 Print Language: Lithuanian
== END 2024-04-28 00:02 | disposition home or self-care (01) ==
PROVIDERS: Emergency Provider Internal Medicine
DX: S29.012A Strain of muscle and tendon of back wall of thorax, initial encounter (principal); M54.6 Pain in thoracic spine; X58.XXXA Exposure to other specified factors, initial encounter; Y93.89 Activity, other specified; Y92.89 Other specified places as the place of occurrence of the external cause; Y99.8 Other external cause status
CPT/HCPCS: 72070; 99283; 99284

== ENCOUNTER 2024-05-19 16:44 | Emergency (ER) | payer MEDICAID, SELFPAY ==
--- NOTE | ~2024-05-19 | XR_ITS ---
EXAMINATION: XR CHEST CLINICAL INFORMATION: Cough and shortness of breath COMPARISON: None available. TECHNIQUE: 2 views of the chest were obtained. FINDINGS: Clear lungs with normal lung volumes. No consolidation, effusion or pneumothorax. Normal heart and mediastinum without mass or adenopathy. No pulmonary edema. Normal gas pattern. Mild idiopathic scoliosis. XR/XR chest 2V IMPRESSION: No acute cardiopulmonary process. Electronically signed by: Isaac Lopez MD 05/19/2024 05:54 PM EDT
[2024-05-19 17:09] VITALS: BP 105/56; PULSE 64; RESP 18; TEMP 36.8; O2SAT 98; BMI 27.4
--- NOTE | 2024-05-19 17:09 | ED_ITS ---
HPI - URI/Sore Throat General Chief Complaint: Upper Respiratory Symptoms Stated Complaint: Fever Time Seen by Provider: 05/19/24 18:34 History of Present Illness ED Provider: Dr. Matias HPI Narrative: 18 y/o M patient; PMH asthma; presents from home with report of two days of cough. The patient denies fever or chills, chest pain, nausea/vomiting/diarrhea, abdominal pain. Sick contacts at work. Related Data Previous Rx's ?Medication ?Instructions ?Recorded cephalexin 500 mg capsule 500 mg PO BID 7 days #14 caps 02/02/24 ondansetron 4 mg disintegrating 4 mg PO Q8H PRN nausea and 02/22/24 tablet vomiting #20 tabs ibuprofen 600 mg tablet 600 mg PO Q6H PRN fever or pain 04/27/24 #30 tabs Allergies Allergy/AdvReac Type Severity Reaction Status Date / Time No Known Allergies Allergy Verified 05/19/24 17:10 Review of Systems Review of Systems: Yes all other systems are reviewed and are negative COUNTS INCLUDE 234 BEDS AT THE [facility] Past Medical History Attestation statement: The following information was validated with the patient. Source: old records reviewed Medical History No pertinent past medical history Social History Social History Patient Tobacco Use Status: Never used Tobacco Substance Use Type: Marijuana Advance Directives: No Advance Directives Information Provided: No Do you have a plan to hurt others: No Plan Physical Exam Vital Signs: Vital Signs: Last Vital Signs Temp 98.1 F 05/19/24 19:30 Pulse 63 05/19/24 19:30 Resp 16 05/19/24 19:30 BP 125/60 05/19/24 19:30 Pulse Ox 98 05/19/24 19:30 O2 Del Method Room Air 05/19/24 19:30 BMI result Body Mass Index 27.4 Patient is afebrile and hemodynamically stable Const: General: cooperative and no acute distress HEENT: Head: Yes normal to inspection and Yes atraumatic Throat: Yes posterior oropharynx normal, Yes tonsils normal and Yes uvula midline Eyes: General: appearance normal, both eyes and all related structures Pupils: Equal, round and reactive pupils present Neck: Neck: Yes normal visual inspection, Yes full ROM, Yes supple and No tender Chest: Chest palpation & inspection: normal inspection of the chest and normal palpation of entire chest wall Resp: Effort & Inspection: normal respiratory effort, able to speak in complete sentences, Actively coughing and no respiratory distress Auscultation: clear to auscultation bilaterally Cardio: Rate: regular rate Rhythm: regular rhythm Peripheral pulses: Peripheral pulses 2+ throughout GI: Inspection: Yes normal to inspection, No Abdominal wall edema and No distended Palpation (GI): Soft to palpation, not firm, nontender, no guarding and not rigid Auscultation: normal bowel sounds Back/Spine/Pelvis: Back: No back tenderness Neuro: Cranial nerves: Yes Equal, round and reactive pupils present Course Course Course Narrative: This is an RME: Additional HPI, ROS, PE not included below will be deferred to primary provider. RME assessment and note performed by: Karly Martinez PA-C This is a 84-yysz-poa-male, with a hx of asthma, who presents to the ER with complaints of cough and SOB. +sick contacts at work. Plan: Viral swabs, cxr, strep swab Reevaluation(s) Reevaluation #1: Patient is afebrile and hemodynamically stable. Reviewed COVID/Flu/RSV swab which was negative. Strep negative. CXR unremarkable. Patient is well appearing and non-toxic. Instructed in supportive care. Plan: Discharge to home with PCP follow up Return precautions given Medical Decision Making Lab Data Labs: Lab Results 05/19/24 Range/Units 17:18 Influenza Type A (PCR) NEGATIVE (Negative) Influenza Type B (PCR) NEGATIVE (Negative) RSV RNA Qual (PCR) NEGATIVE (Negative) SARS-CoV-2 RNA (RT-PCR) NEGATIVE (Negative) S. pyogenes GrpA TOSHIA Negative (Negative) Radiology Impression Discussion of test interpretation with radiology: I have reviewed the radiologist's reading. Radiologist Impression: EXAMINATION: XR CHEST CLINICAL INFORMATION: Cough and shortness of breath COMPARISON: None available. TECHNIQUE: 2 views of the chest were obtained. FINDINGS: Clear lungs with normal lung volumes. No consolidation, effusion or pneumothorax. Normal heart and mediastinum without mass or adenopathy. No pulmonary edema. Normal gas pattern. Mild idiopathic scoliosis. XR/XR chest 2V IMPRESSION: No acute cardiopulmonary process. Electronically signed by: Isaac Lopez MD 05/19/2024 05:54 PM EDT RP Discharge Plan Discharge Clinical Impression: Cough Patient Disposition: Home, Self-Care Instructions: Acute Cough (ED) Additional Instructions: As we discussed, you were seen today for a cough. Your COVID/Flu/RSV testing was negative and your chest XR did not show a pneumonia. Please follow up with your PCP within the next 1 - 2 days to discuss your recent emergency department visit. Return to the emergency department for: Difficulty breathing Chest pain Passing out Prescriptions: No Action cephalexin 500 mg capsule 500 mg PO BID 7 Days Qty: 14 0RF ibuprofen 600 mg tablet 600 mg PO Q6H PRN (Reason: fever or pain) Qty: 30 0RF ondansetron 4 mg tablet,disintegrating 4 mg PO Q8H PRN (Reason: nausea and vomiting) Qty: 20 0RF Print Language: Jordanian
[2024-05-19 18:07] LABS: Influenza A PCR NEGATIVE (Negative); Influenza B PCR NEGATIVE (Negative); Resp Syncy Virus RNA Qual PCR NEGATIVE (Negative); SARS COV2 PCR INHOUSE NEGATIVE (Negative)
[2024-05-19 18:57] LABS: IDNOW Serial# 6674DD1D; Strep A Nucleic Acid Negative (Negative)
[2024-05-19 19:30] VITALS: BP 125/60; PULSE 63; RESP 16; TEMP 36.7; O2SAT 98
--- NOTE | 2024-05-19 19:31 | PC.NURSE ---
pt a&ox3, vss, swab obtained, pt denies pain/discomfort, awaiting providers, call day within reach, will continue to monitor
--- NOTE | 2024-05-19 20:04 | PC.NURSE ---
second mate called to discharge patient
[2024-05-19 20:16] VITALS: BP 125/60; PULSE 63; RESP 16; TEMP 36.7; O2SAT 98
== END 2024-05-19 20:17 | disposition home or self-care (01) ==
PROVIDERS: Physician Assistant Medical; Emergency Provider Emergency Medicine
DX: R50.9 Fever, unspecified (principal); R06.02 Shortness of breath; Z03.818 Encounter for observation for suspected exposure to other biological agents ruled out
CPT/HCPCS: 0241U; 71046; 87651; 99283

== ENCOUNTER 2024-06-07 22:53 | Emergency (ER) | payer MEDICAID, SELFPAY ==
[2024-06-07 22:54] VITALS: BP 131/57; PULSE 80; RESP 18; TEMP 36.8; O2SAT 98; BMI 25.9
[2024-06-07 23:12] LABS: IDNOW Serial# 6674DD1D; Strep A Nucleic Acid Negative (Negative)
[2024-06-07 23:39] LABS: Influenza A PCR NEGATIVE (Negative); Influenza B PCR NEGATIVE (Negative); Resp Syncy Virus RNA Qual PCR NEGATIVE (Negative); SARS COV2 PCR INHOUSE NEGATIVE (Negative)
--- NOTE | 2024-06-08 01:39 | ED.GENADULT ---
HPI - General Adult General Chief complaint: General Medical Stated complaint: scratchy throat Time Seen by Provider: 06/08/24 01:27 EDT Related Data Previous Rx's ?Medication ?Instructions ?Recorded cephalexin 500 mg capsule 500 mg PO BID 7 days #14 caps 02/02/24 ondansetron 4 mg disintegrating 4 mg PO Q8H PRN nausea and 02/22/24 tablet vomiting #20 tabs ibuprofen 600 mg tablet 600 mg PO Q6H PRN fever or pain 04/27/24 #30 tabs Allergies Allergy/AdvReac Type Severity Reaction Status Date / Time No Known Allergies Allergy Verified 06/07/24 22:55 PMFSH Past Medical History Medical History No pertinent past medical history Social History Social History Patient Tobacco Use Status: Never used Tobacco Substance Use Type: Marijuana Advance Directives: No Advance Directives Information Provided: No Do you have a plan to hurt others: No Plan Physical Exam ED Vital Signs: Vital Signs - 24 hr 06/07/24 22:54 Temperature 98.2 F Pulse Rate 80 Respiratory Rate 18 Blood Pressure 131/57 L Pulse Oximetry 98 Oxygen Delivery Method Room Air BMI result Body Mass Index 25.9 Course Course Course Narrative: patient was never assessed, left without being seen Medical Decision Making Lab Data Labs: Lab Results 06/07/24 Range/Units 22:59 Influenza Type A (PCR) NEGATIVE (Negative) Influenza Type B (PCR) NEGATIVE (Negative) RSV RNA Qual (PCR) NEGATIVE (Negative) SARS-CoV-2 RNA (RT-PCR) NEGATIVE (Negative) S. pyogenes GrpA TOSHIA Negative (Negative) Discharge Plan Discharge Clinical Impression: Acute sore throat Patient Disposition: Left Without Being Seen Interventions: LWBS Worksheet Last Done: 06/08/24 01:31 Discharge Date/Time: 06/08/24 01:38 EDT
== END 2024-06-08 01:38 | disposition left against medical advice (07) ==
LOC: HO.ED 06-08 01:38
PROVIDERS: Emergency Provider Emergency Medicine
DX: J02.9 Acute pharyngitis, unspecified (principal); Z03.818 Encounter for observation for suspected exposure to other biological agents ruled out
CPT/HCPCS: 0241U; 87651; 99281

== ENCOUNTER 2024-08-16 11:06 | Emergency (ER) | payer MEDICAID, SELFPAY ==
[2024-08-16 11:08] VITALS: BP 114/71; PULSE 78; RESP 18; TEMP 36.6; O2SAT 98; BMI 26.6
--- NOTE | 2024-08-16 11:10 | ED_ITS ---
HPI - General Adult General Chief complaint: Upper Respiratory Symptoms Stated complaint: wants covid test Time Seen by Provider: 08/16/24 12:10 Source: patient and RN notes reviewed Mode of arrival: ambulatory Limitations: no limitations History of Present Illness ED Provider: Karly Martinez PA-C HPI narrative: This is a [id number]-male, with no known medical problems, who presents to the ER with complaints of sore throat and dry cough x 1 day. Recent exposure to COVID. Reports no fevers, chills, CP, SOB, abdominal pain, nausea, vomiting or diarrhea. Denies taking any medications at home to tx symptoms. No other complaints or concerns at this time. MD complaint: cough, sore throat Onset (ago): day(s) Relieving factors: none Exacerbating factors: none Associated symptoms: cough Treatments prior to arrival: none Related Data Previous Rx's ?Medication ?Instructions ?Recorded cephalexin 500 mg capsule 500 mg PO BID 7 days #14 caps 02/02/24 ondansetron 4 mg disintegrating 4 mg PO Q8H PRN nausea and 02/22/24 tablet vomiting #20 tabs ibuprofen 600 mg tablet 600 mg PO Q6H PRN fever or pain 04/27/24 #30 tabs Allergies Allergy/AdvReac Type Severity Reaction Status Date / Time No Known Allergies Allergy Verified 08/16/24 11:09 Review of Systems Review of Systems: Yes all other systems are reviewed and are negative Constitutional: Constitutional: Reports as per HPI [facility] Past Medical History Medical History No pertinent past medical history Social History Social History Patient Tobacco Use Status: Never used Tobacco Substance Use Type: Marijuana Advance Directives: No Do you have a plan to hurt others: No Plan Physical Exam ED Vital Signs: Vital Signs - 24 hr 08/16/24 11:08 08/16/24 12:31 Temperature 98 F 98 F Pulse Rate 78 78 Respiratory Rate 18 18 Blood Pressure 114/71 114/71 Pulse Oximetry 98 98 Oxygen Delivery Method Room Air Room Air BMI result Body Mass Index 26.6 Const General: cooperative, comfortable and no acute distress Orientation/consciousness: patient oriented x3 Limitations: no limitations HENMT Head: Yes normal to inspection, Yes normocephalic and Yes atraumatic Ears: hearing grossly normal bilaterally and TM's normal bilaterally General nose exam: Normal external nose present Face and sinus: Yes normal facial exam Mouth: Normal oral and palatal mucosa present, oropharynx normal and moist mucous membranes Throat: Yes posterior oropharynx normal Eyes General: appearance normal, both eyes and all related structures Eyelids: Yes eyelids normal Conjunctivae: conjunctivae normal Sclerae: sclerae normal Pupils: Equal, round and reactive pupils present EOM: EOMs intact bilaterally Neck Neck: Yes normal visual inspection, Yes full ROM and Yes no lymphadenopathy Lymphatic: no lymphadenopathy noted Chest Chest palpation & inspection: normal inspection of the chest Resp Effort & Inspection: normal respiratory effort and able to speak in complete sentences Auscultation: clear to auscultation bilaterally, no crackles, no rales, no rhonchi and no wheezes Cardio Rate: regular rate Rhythm: regular rhythm Heart sounds: S1 normal heart sound present and S2 normal heart sound present GI Inspection: Yes normal to inspection Skin General skin exam: no rashes or lesions noted Trauma: no lacerations or abrasions Wounds: no wounds Neuro General: patient oriented x3 and moves all extremities Cranial nerves: Yes Equal, round and reactive pupils present Extrem General: Yes normal to inspection Right upper extremity: normal to inspection Left upper extremity: normal to inspection Right lower extremity: normal to inspection Left lower extremity: normal to inspection Course Course Course Narrative: This is a Rapid Medical Examination (RME) performed by Star Doyle PA-C in triage. Full HPI, ROS, assessment and treatment plan per primary provider in the Main ED. 19 yo male here for eval of cough and sore throat x24 hours. requesting covid testing for work. Plan: viral/strep swabs Medical Decision Making Medical Decision Making [facility] Narrative: 19 y/o M here with cough and sore throat. On arrival, pt's vitals are WNL. Lungs CTAB. Oral pharynx is widely patent, no abnormalities. He is well appearing under no acute distress. Viral swabs and strep testing performed and are negative. Discussed with patient symptoms are likely in nature; Discussed conservative tx with patient and given return precautions. He understands and agrees with plan. Stable for d.c. Differential Diagnosis Differential Diagnoses: The differential diagnosis associated with the presentation includes pharyngitis, strep, covid, rsv, flu Admission/Observation Consideration of admission/observation: Escalation of care including admission/observation considered Lab Data MDM Lab Attestation statement: I reviewed the patient's lab results. negative Labs: Lab Results 08/16/24 Range/Units 11:13 Influenza Type A (PCR) NEGATIVE (Negative) Influenza Type B (PCR) NEGATIVE (Negative) RSV RNA Qual (PCR) NEGATIVE (Negative) SARS-CoV-2 RNA (RT-PCR) NEGATIVE (Negative) S. pyogenes GrpA TOSHIA Negative (Negative) Discharge Plan Discharge Clinical Impression: Upper respiratory infection, viral Patient Disposition: Home, Self-Care Instructions: Upper Respiratory Infection (ED) Additional Instructions: You were seen in the emergency department due to cold-like symptoms. You tested negative for COVID, flu, RSV, and strep. You likely have a virus causing your symptoms. You may also be too early to test positive for COVID. Please drink plenty of fluids get plenty of rest. Alternate between Tylenol and or Motrin as needed for pain and symptoms. If any new or worsening symptoms occur including but not limited to chest pain or shortness of breath, please seek emergent care. Prescriptions: No Action cephalexin 500 mg capsule 500 mg PO BID 7 Days Qty: 14 0RF ibuprofen 600 mg tablet 600 mg PO Q6H PRN (Reason: fever or pain) Qty: 30 0RF ondansetron 4 mg tablet,disintegrating 4 mg PO Q8H PRN (Reason: nausea and vomiting) Qty: 20 0RF Stand Alone Forms: Work/School Release Interventions: ED Discharge Assessment Last Done: 08/16/24 12:31 Discharge Date/Time: 08/16/24 12:32 Print Language: Turkish
[2024-08-16 11:37] LABS: IDNOW Serial# 58CA691E; Strep A Nucleic Acid Negative (Negative)
[2024-08-16 12:08] LABS: Influenza A PCR NEGATIVE (Negative); Influenza B PCR NEGATIVE (Negative); Resp Syncy Virus RNA Qual PCR NEGATIVE (Negative); SARS COV2 PCR INHOUSE NEGATIVE (Negative)
[2024-08-16 12:31] VITALS: BP 114/71; PULSE 78; RESP 18; TEMP 36.6; O2SAT 98
== END 2024-08-16 12:32 | disposition home or self-care (01) ==
PROVIDERS: Physician Assistant Medical; Emergency Provider Emergency Medicine
DX: J06.9 Acute upper respiratory infection, unspecified (principal); J02.9 Acute pharyngitis, unspecified; R05.9 Cough, unspecified; Z03.818 Encounter for observation for suspected exposure to other biological agents ruled out
CPT/HCPCS: 0241U; 87651; 99283

== ENCOUNTER 2024-10-11 15:50 | Emergency (ER) | payer MEDICAID, SELFPAY ==
[2024-10-11 15:57] VITALS: BP 123/64; PULSE 74; RESP 16; TEMP 37; O2SAT 98; BMI 28.1
[2024-10-11 16:23] LABS: IDNOW Serial# 08D9AD1C; Strep A Nucleic Acid Negative (Negative)
[2024-10-11 16:55] LABS: Influenza A PCR NEGATIVE (Negative); Influenza B PCR NEGATIVE (Negative); Resp Syncy Virus RNA Qual PCR NEGATIVE (Negative); SARS COV2 PCR INHOUSE NEGATIVE (Negative)
[2024-10-11 17:31] VITALS: BP 131/69; PULSE 56; RESP 16; TEMP 36.8; O2SAT 99
--- NOTE | 2024-10-11 17:34 | ED_ITS ---
HPI - URI/Sore Throat General Chief Complaint: Upper Respiratory Symptoms Stated Complaint: covid? Time Seen by Provider: 10/11/24 17:33 Source: patient Mode of arrival: ambulatory Limitations: no limitations History of Present Illness ED Provider: SATHISH SUAREZ PA-C HPI Narrative: 19 year old male presents to the ED today requesting COVID testing. 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 He was informed that multiple people at his job tested positive for covid. He began to have a dry cough and sore throat yesterday. Denies odynophagia or dysphagia. He has not trialed any over-the-co unter medications for his symptoms. He states that he does sleep with the window open at night and is unsure if this is contributing to his throat discomfort. No other complaints. Denies fever, chills, chest pain, SOB, N/V/D. Related Data Previous Rx's ?Medication ?Instructions ?Recorded cephalexin 500 mg capsule 500 mg PO BID 7 days #14 caps 02/02/24 ondansetron 4 mg disintegrating 4 mg PO Q8H PRN nausea and 02/22/24 tablet vomiting #20 tabs ibuprofen 600 mg tablet 600 mg PO Q6H PRN fever or pain 04/27/24 #30 tabs benzocaine 15 mg-menthol 2.6 mg 1 cayetano mucous membrane Q2-4H PRN 10/11/24 lozenges (Cepacol Sore Throat sore throat #16 ea (benzocaine-menthol)) Allergies Allergy/AdvReac Type Severity Reaction Status Date / Time No Known Allergies Allergy Verified 10/11/24 15:59 Review of Systems Review of Systems: Constitutional: No fever, chills, fatigue, night sweats, weight changes ENT/Mouth: No ear pain, hearing loss, nasal congestion, sinus pain, rhinorrhea, +sore throat Eyes: No eye pain, swelling, redness, vision changes, discharge Cardio: No chest pain, palpitations, HUTCHISON, orthopnea, peripheral edema Pulm: No SOB, cough, sputum, wheezing, dyspnea, hemoptysis GI: No nausea, vomiting, hematemesis, abdominal pain, diarrhea, constipation, hematochezia, melena : No irregular bleeding, dysuria, frequency, urgency, hesitancy, hematuria, flank pain, urinary flow changes, urinary incontinence or retention MSK: No back pain, neck pain, joint pain, myalgias Skin: No lesions, rashes Neuro: No weakness, numbness, paresthesias, LOC, dizziness, headache Psych: No anxiety/panic, depression, SI/HI, AH/VH All other systems reviewed and are negative. [facility] Past Medical History Attestation statement: The following information was validated with the patient. Source: old records reviewed and nursing notes reviewed Medical History No pertinent past medical history Social History Social History Patient Tobacco Use Status: Never used Tobacco Substance Use Type: Marijuana Advance Directives: No Advance Directives Information Provided: No Physical Exam Vital Signs: Vital Signs: Last Vital Signs Temp 98.2 F 10/11/24 17:40 Pulse 56 10/11/24 17:40 Resp 16 10/11/24 17:40 BP 131/69 10/11/24 17:40 Pulse Ox 99 10/11/24 17:40 O2 Del Method Room Air 10/11/24 17:40 BMI result Body Mass Index 28.1 Vital signs stable, afebrile General: Well appearing, in no acute distress. Skin: Warm, dry, intact. No rashes or lesions. Head: Normocephalic, atraumatic. EENT: Hearing is intact b/l. Conjunctiva clear. PERRLA. EOM intact. Moist mucous membranes. Posterior oropharynx slightly erythematous, no tonsillar exudates or peritonsillar masses. No edema. Uvula midline. Controlling secretions and speaking complete sentences. No muffled voice Neck: Supple without LAD. Cardiac: Chest wall symmetric. RRR. Lungs: Normal respiratory effort without accessory muscle use. CTA bilaterally. No rales, rhonchi, or wheezes.? Abdomen: Soft, non-tender, non-distended. No rebound tenderness or guarding. Positive BS x4. Neuro: AOx3. Normal speech. Ambulating with steady gait. Course Course Course Narrative: negative covid, flu, rsv, strep throat. Posterior oropharynx slightly erythematous, not convincing for strep pharyngitis. Reports minimal discomfort. No difficulty swallowing. Will treat for viral syndrome. Cepacol throat lozenges sent to pharmacy for discomfort. Patient has remained stable throughout ED visit today. Discussed worrisome signs and symptoms and when to return to the ED. All questions answered at this time. Patient is agreeable with disposition and stable for discharge. Medical Decision Making Medical Decision Making [facility] Narrative: 19 year old male presents to the ED today requesting COVID testing. Vital signs are stable. Nontoxic-appearing in no acute distress. Lungs CTA bilaterally. posterior oropharynx slightly erythematous, no tonsillar exudates or peritonsillar masses. No edema. Uvula midline. Controlling secretions and speaking complete sentences. No muffled voice Differential diagnosis includes viral syndrome, strep throat. Unlikely [employer], retropharyngeal abscess, epiglottitis, mono, deep soft tissue infection, pneumonia. Plan for viral and strep swabs, re-evaluation. Differential Diagnosis Differential Diagnoses: The differential diagnosis associated with the presentation includes as above. Admission/Observation not indicated. Lab Data [facility] Lab Attestation statement: I reviewed the patient's lab results. as above. Labs: Lab Results 10/11/24 Range/Units 16:10 Influenza Type A (PCR) NEGATIVE (Negative) Influenza Type B (PCR) NEGATIVE (Negative) RSV RNA Qual (PCR) NEGATIVE (Negative) SARS-CoV-2 RNA (RT-PCR) NEGATIVE (Negative) S. pyogenes GrpA TOSHIA Negative (Negative) Prescription Management I considered prescription management with: Other (cepacol throat lozenges ) Social Determinants Patient?s care significantly limited by Social Determinants of Health including: Other Social Determinant of Health Critical Care Time Critical Care Time Critical Care Time: No Discharge Plan Discharge Clinical Impression: Acute viral syndrome Patient Disposition: Home, Self-Care Instructions: Viral Syndrome (ED) Additional Instructions: You tested negative for covid, flu, rsv, and strep throat. I am sending Cepacol throat lozenges to your pharmacy for you to take as needed for sore throat. Follow up with your primary care provider. Return with new or worsening symptoms. In the case of an emergency call 911. Prescriptions: New Cepacol Sore Throat (bogdan-men) 15-2.6 mg lozenge 1 cayetano mucous membrane Q2-4H PRN (Reason: sore throat) Qty: 16 0RF No Action cephalexin 500 mg capsule 500 mg PO BID 7 Days Qty: 14 0RF ibuprofen 600 mg tablet 600 mg PO Q6H PRN (Reason: fever or pain) Qty: 30 0RF ondansetron 4 mg tablet,disintegrating 4 mg PO Q8H PRN (Reason: nausea and vomiting) Qty: 20 0RF Stand Alone Forms: Work/School Release Interventions: ED Discharge Assessment Last Done: 10/11/24 17:40 Discharge Date/Time: 10/11/24 17:40 Print Language: Danish
--- OUTSIDE RECORDS SUMMARY | 2024-10-11 17:37 | XMS_ITS | Clinical Summary ---
Author Organization [facility] Address [address] [place] [address] Care Team Providers Care Registered Veterinary Technician Name Role Phone Lolita Cruz TREE PRUNER-C Primary Care Provider [phone] Source Comments PLEASE NOTE, if this patient is a minor, it may be UNLAWFUL to discuss sensitive information that is contained in these records (such as FAMILY PLANNING, MENTAL HEALTH or SUBSTANCE ABUSE) with the minor patient's parent or other person without the patient's specific authorization.[facility] Allergies No known active allergies Medications melatonin 3 mg tabletIndications: Sleep disturbance Take 1 Tab by mouth nightly at bedtime as needed for sleep 30 Tab 2 8 Active hydrocortisone 1 % creamIndications:R sharad,Eczema, unspecified type Apply topically 2 (two) times daily 30 g 3 8 Active dextroamphetamine- amphetamine (ADDERALL XR) 25 mg 24 hr capsuleIndications :Attention deficit hyperactivity disorder (ADHD), combined type Take 1 Cap by mouth every morning Do not crush or chew. 30 Cap 9 Active guanFACINE (TENEX) 1 mg tabletIndications: Attention deficit hyperactivity disorder (ADHD), combined type TAKE 1 TABLET BY MOUTH DAILY WITH LUNCH 30 Tab 2 0 Active ibuprofen 400 mg tabletIndications: Costovertebral angle tenderness,Left-si ded low back pain without sciatica, unspecified chronicity TAKE 1 TABLET BY MOUTH FOUR TIMES DAILY NEEDED FOR PAIN 30 Tab 3 0 Active PROAIR HFA 90 mcg/actuation inhalerIndications :Mild intermittent asthma without complication INHALE 2 PUFFS BY MOUTH EVERY 4 HOURS NEEDED FOR SHORTNESS OF BREATH OR WHEEZING 8.5 g 3 2 Active Active Problems Problem Noted Date Diagnosed Date Marijuana smoker 02/02/2021 Oppositional defiant behavior 12/05/2016 ADHD (attention deficit hyperactivity disorder) 06/10/2014 Overview (12/02/2017): 10-11-17: 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 Mild intermittent asthma without complication Overview (11/04/2018): Asthma exacerbation on 11/01/18. Eczema 11/19/2007 Resolved Problems Problem Noted Date Diagnosed Date Resolved Date Pseudoseizure 02/02/2021 07/11/2022 Overview (02/02/2021): 01/15/2021: Patient presented with episode of unresponsiveness with concern of Seizure . Upon evaluation assessment patient alert appropiate responding questions able to ambulate move all extremities without focal neuro deficits. Patient states he recently started taking Hydroxyzine state he is not taking any additional medicines. Patient without hyperthermia or rigidity or clonus is not exhibiting any specific toxidrome. EKG normal sinus rhythm without QTC prolongation. At this time low suspicion for seizure as there was no witnessed tonic-clonic myoclonic activity. BMI (body mass index), pedia tric, 95-99% for age 1006/05/2019 07/11/2022 Left-sided low back pain without sciatica 06/05/2019 07/11/2022 Sleep difficulties 12/05/2016 2 Immunizations Name Administration Dates Next Due DTAP (DAPTACEL),5 PERTUSSIS ANTIGENS 02/2009,11/21/2005,04/18/2005,12/21,2004 Flu, Preservative Free 06/05/2019,04/25/2018,12/2016 HEP B, PED/ADOL 04/18/2005,2004,2004 HPV 9 (Gardasil) 04/25/2018,11/08/2016 Hep A, Ped/adol, 2 Dose 05/29/2008,11/18/2007 Hib (PRP-T) 11/21/2005, 6,2004,09/09 INFLUENZA, SEASONAL, INJECTABLE 06/13/20 12,06/23/2010,05/14/2009,05/29 INFLUENZA, SEASONAL, INJECTA BLE, PRESERVATIVE FREE 05/25/2014,04/24/2013 IPV 12/10/2008, 5,2004,09/09 MENINGOCOCCAL MCV4P (MENACTRA) 11/08/2016 MMR (MMR II/Priorix) 05/14/2009,11/18/2007 PNEUMOCOCCAL CONJUGATE PCV 7 11/18/2007,11/22/19 06,2004 TDAP 11/08/2016 Varicella, Live Vaccine 05/14/2009,05/29/2008 Family History Medical History Relation Name Comments ADD / ADHD Brother 1 Asthma Brother 1 ADD / ADHD Brother 2 Asthma Brother 2 ADD / ADHD Brother 3 Obesity Mother Relation Name Status Comments Brother 1 Alive Brother 2 Alive Brother 3 Alive Mother Alive Social History Tobacco Use Types Packs/Day Years Used Date Smoking Tobacco: Never Smokeless Tobacco: Never Alcohol Use Standard Drinks/Week Comments No 0 (1 standard drink = 0.6 oz pur e alcohol) Social Connections Answer Date Recorded Connectedness 0 04/23/2024 Financial Resource Strain Answer Date R ecorded Financial Resource Strain 0 2018 Stress Answer Date Recorded Stress 0 03/29/2019 Physical Activity Answer Date Recorded Physical Activity 0 03/29/2019 Food Insecurity Answer Date Recorded Food 0 05/01/2024 Transportation Needs Answer Date Record ed Transportation 0 03/29/2019 Housing Stability Answer Date Recorded Housing 0 03/29/2019 Safety and Environment Answer Date Dae rded Safety 0 03/29/2019 Utilities Answer Date Recorded Utilities 0 03/29/2019 Employment Answer Date Recorded Stress 0 04/23/2024 Sex and Gender Information Value Date Recorded Sex Assigned at Not on file Legal Sex Male 11:36 AM PDT Gender Identity Not on file Sexual Orientation Not on file Last Filed Vital Signs Vital Sign Reading Time Taken Comments Blood Pressure 110/68 06/05/2019 10:59 AM EDT Pulse 84 06/05/2019 10:59 AM EDT Temperature 36.7 ??C (98.1 ??F) 06/05/2019 10:59 AM E DT Respiratory Rate 20 06/05/2019 10:59 AM EDT Oxygen Saturation - - Inhaled Oxygen Concentration - - Weight 81.6 kg (180 lb) 06/05/2019 10:59 AM EDT Height 171 cm (5' 7.32 ) 06/05/2019 10:59 AM EDT Body Mass Index 27.92 06/05/2019 10:59 AM EDT Plan of Treatment Health Maintenance Due Date Last Done Comments Hepatitis C Screening 2004 Tobacco Screening 2004 HIV Screening 2019 Hypertension Screening (#1) 06/04/2022 Imm-Pneumococcal (1 of 2 - PCV) 2023 11/18/2007, 11/21/2005, 2004 [id number] ( - season) 2024 Imm-Influenza (#1) 2024 06/05/2019, 0 04/25/2018, 11/08/2016, Additional history exists Alcohol and Drug Screen 08/06/2024 06/05/2019, 04/25 Depression Annual Screen 08/06/2024 06/06/2019 Imm-DTaP/Tdap/Td (7 - Td or Tdap) 11/08/2026 11/08/2016, 12/10/2008, 11/21/2005, Additional history exists Imm-Hepatitis B Completed 04/18/2005, 12/04, 2004 Imm-Hepatitis A Completed 05/29/2008, 11/18/2007 Imm-MMR Completed 05/14/2009, 11/18/2007 Imm-Varicella Completed 05/14/2009, 05/29/2008 Imm-HPV Completed 04/25/2018, 11/08/2016 Insurance [facility] Care Teams Registered Veterinary Technician Relationship Specialty Start Date End Date Lolita Cruz FNP-C [address] [place] [address] PCP - General Internal Medicine 01/04/24
[2024-10-11 17:40] VITALS: BP 131/69; PULSE 56; RESP 16; TEMP 36.8; O2SAT 99
== END 2024-10-11 17:40 | disposition home or self-care (01) ==
PROVIDERS: Physician Assistant Medical; Emergency Provider Emergency Medicine Emergency Medical Services
DX: B34.9 Viral infection, unspecified (principal); R05.9 Cough, unspecified; J02.9 Acute pharyngitis, unspecified; Z03.818 Encounter for observation for suspected exposure to other biological agents ruled out
CPT/HCPCS: 0241U; 87651; 99282; 99283

== ENCOUNTER 2024-10-16 21:03 | Emergency (ER) | payer MEDICAID, SELFPAY ==
[2024-10-16 21:11] VITALS: BP 116/58; PULSE 93; RESP 16; TEMP 36.4; O2SAT 98; BMI 25.8
[2024-10-16 22:01] LABS: IDNOW Serial# 6674DD1D; Strep A Nucleic Acid Negative (Negative)
[2024-10-16 22:18] LABS: Influenza A PCR NEGATIVE (Negative); Influenza B PCR NEGATIVE (Negative); Resp Syncy Virus RNA Qual PCR NEGATIVE (Negative); SARS COV2 PCR INHOUSE NEGATIVE (Negative)
[2024-10-17] VITALS: BP 122/62; PULSE 58; RESP 18; TEMP 36.7; O2SAT 97
--- NOTE | 2024-10-17 00:31 | ED.URI ---
HPI - URI/Sore Throat General Chief Complaint: Upper Respiratory Symptoms Stated Complaint: COVID SYMPTOMS Time Seen by Provider: 10/17/24 00:25 Source: patient Mode of arrival: ambulatory Limitations: no limitations History of Present Illness ED Provider: Dr. Sweta Young HPI Narrative: Patient comes to the emergency department complaining of a scratchy throat for a few days. Patient states that he was in a few days for the same, tested negative. Today, patient states that his symptoms have not changed. However, he keeps getting exposed to people at work that have been diagnosed with COVID and flu. Patient states that the reason that he is here is because his partner made him come to the emergency room to get tested. They have a baby at home and his partner is concerned that the baby may get sick Related Data Previous Rx's ?Medication ?Instructions ?Recorded cephalexin 500 mg capsule 500 mg PO BID 7 days #14 caps 02/02/24 ondansetron 4 mg disintegrating 4 mg PO Q8H PRN nausea and 02/22/24 tablet vomiting #20 tabs ibuprofen 600 mg tablet 600 mg PO Q6H PRN fever or pain 04/27/24 #30 tabs benzocaine 15 mg-menthol 2.6 mg 1 cayetano mucous membrane Q2-4H PRN 10/11/24 lozenges (Cepacol Sore Throat sore throat #16 ea (benzocaine-menthol)) Allergies Allergy/AdvReac Type Severity Reaction Status Date / Time No Known Allergies Allergy Verified 10/16/24 21:13 Review of Systems Review of Systems: Constitutional : No Weight loss, No Fever, No Chills, No Night Sweats, No Fatigue, No Malaise ENT/Mouth : No Hearing loss, No Ear Pain, No Nasal Congestion, No Sinus Pain, No Hoarseness, complaining of scratchy throat, no sore throat, No Rhinorrhea, No Swallowing Difficulty Eyes: No Eye Pain, No Swelling, No Redness, No Foreign Body, No Discharge, No Vision Changes Cardiovascular : No Chest Pain, No SOB, No Dyspnea on Exertion, No Orthopnea, No Edema, No Palpitations Respiratory : No Cough, No Sputum, No Wheezing, No Smoke Exposure, No Dyspnea Gastrointestinal : No Nausea, No Vomiting, No Diarrhea, No Constipation, No abdominal Pain, No Hematochezia, No Melena Genitourinary : no irregular bleeding, No Dysuria, No Urinary Frequency, No Hematuria, No Urinary Incontinence, No Urgency, No Flank Pain, No Urinary Flow Changes, No Hesitancy Musculoskeletal : No joint pain, No Myalgias, No Joint Swelling Skin : No Skin Lesions, No rash Neuro : No Weakness, No Numbness, No Paresthesias, No Loss of Consciousness, No Dizziness, No Headache Psych : No Anxiety/Panic, No Depression, No SI/HI/AH/VH, No Social Issues, Heme/Lymph: No Bruising, No Bleeding,No Lymphadenopathy Endocrine : No Polyuria, No Polydipsia, No Temperature Intolerance [facility] Past Medical History Medical History No pertinent past medical history Social History Social History Patient Tobacco Use Status: Never used Tobacco Substance Use Type: Marijuana Advance Directives: No Advance Directives Information Provided: Yes Do you have a plan to hurt others: No Plan Physical Exam Vital Signs: Vital Signs: Last Vital Signs Temp 98.1 F 10/17/24 00:00 Pulse 58 10/17/24 00:00 Resp 18 10/17/24 00:00 BP 122/62 10/17/24 00:00 Pulse Ox 97 10/17/24 00:00 O2 Del Method Room Air 10/17/24 00:00 BMI result Body Mass Index 25.8 Const: Other: Appearance: Alert. Oriented X3. No acute distress. Eyes: Pupils equal, round and reactive to light. ENT: Pharynx normal. Neck: Normal inspection. Neck supple. No lymph nodes noted. No crepitus CVS: Normal heart rate and rhythm. Pulses normal. Normal S1 and S2 Respiratory: No respiratory distress. Breath sounds normal. No Wheezing. No rales Abdomen: Soft and nontender. No rigidity. No distention. Skin: Skin warm and dry. Normal skin color. Normal skin turgor. Extremities: No lower extremity edema. No Lacerations. No Rash Neuro: Oriented X 3. No motor deficit. No sensory deficit. Moving all extremities. No slurred speech. CN 2 through 12 grossly intact Psych: calm, cooperative, normal affect Medical Decision Making Medical Decision Making MDM Narrative: patient's physical exam unremarkable serology negative for influenza, COVID, RSV or strep Lab Data Labs: Lab Results 10/16/24 Range/Units 21:25 Influenza Type A (PCR) NEGATIVE (Negative) Influenza Type B (PCR) NEGATIVE (Negative) RSV RNA Qual (PCR) NEGATIVE (Negative) SARS-CoV-2 RNA (RT-PCR) NEGATIVE (Negative) S. pyogenes GrpA TOSHIA Negative (Negative) Discharge Plan Discharge Clinical Impression: Acute viral syndrome Patient Disposition: Home, Self-Care Instructions: Viral Syndrome (ED) Additional Instructions: Please follow-up with your primary care physician tomorrow. If you have any worsening or new symptoms, please return to the emergency room or call 911 Prescriptions: No Action cephalexin 500 mg capsule 500 mg PO BID 7 Days Qty: 14 0RF ibuprofen 600 mg tablet 600 mg PO Q6H PRN (Reason: fever or pain) Qty: 30 0RF Cepacol Sore Throat (bogdan-men) 15-2.6 mg lozenge 1 cayetano mucous membrane Q2-4H PRN (Reason: sore throat) Qty: 16 0RF ondansetron 4 mg tablet,disintegrating 4 mg PO Q8H PRN (Reason: nausea and vomiting) Qty: 20 0RF Print Language: Citizen [place]
[2024-10-17 00:45] VITALS: BP 122/62; PULSE 58; RESP 18; TEMP 36.7; O2SAT 97
== END 2024-10-17 00:46 | disposition home or self-care (01) ==
PROVIDERS: Emergency Provider Emergency Medicine
DX: B34.9 Viral infection, unspecified (principal); J02.9 Acute pharyngitis, unspecified; Z03.818 Encounter for observation for suspected exposure to other biological agents ruled out
CPT/HCPCS: 0241U; 87651; 99283

== ENCOUNTER 2024-12-07 20:24 | Emergency (ER) | payer MEDICAID, SELFPAY ==
[2024-12-07 21:15] VITALS: BP 120/63; PULSE 67; RESP 18; TEMP 29.7; O2SAT 98; BMI 27.0
--- OUTSIDE RECORDS SUMMARY | 2024-12-07 21:39 | XMS_ITS | Clinical Summary ---
Author Organization [facility] Address [address] [place] [address] Care Team Providers Care Cytopathologist Name Role Phone Lolita Cruz BANK REPRESENTATIVE-C Primary Care Provider [phone] Source Comments PLEASE NOTE, if this patient [...] mcg/actuation inhalerIndications :Mild intermittent asthma without complication ([facility]) INHALE 2 PUFFS BY MOUTH EVERY 4 HOURS NEEDED FOR SHORTNESS OF BREATH OR WHEEZING 8.5 g 3 2 Active Active Problems Problem Noted Date Diagnosed Date Marijuana smoker 02/02/2021 Oppositional defiant behavior 12/05/2016 ADHD (attention deficit hyperactivity disorder) 06/10/2014 Overview (12/02/2017): 10-11-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 Mild intermittent asthma without complication ([facility]) 11/19/2007 Overview (11/04/2018): Asthma exacerbation on 11/01/18. Eczema [...] 06/05/2019 07/11/2022 Sleep difficulties 12/05/2016 2 Immunizations Immunization Administration Dates Next Due DTAP (DAPTACEL),5 PERTUSSIS ANTIGENS 02/2009,11/21/2005,04/18/2005,12/21,2004 Flu, Preservative Free 06/05/2019,04/25/2018,12/2016 HEP B, PED/ADOL 04/18/2005,2004,2004 HPV 9 (Gardasil) 04/25/2018,11/08/2016 Hep A, Ped/adol, 2 Dose 05/29/2008,11/18/2007 Hib (PRP-T) 11/21/2005, 6,2004,09/09 INFLUENZA, SEASONAL, INJECTABLE 06/13/20 12,06/23/2010,05/14/2009,05/29 INFLUENZA, SEASONAL, INJECTA BLE, PRESERVATIVE FREE 05/25/2014,04/24/2013 IPV (IPOL) 12/10/2008, 5,2004,09/09 MENINGOCOCCAL MCV4P (MENACTRA) 11/08/2016 MMR (MMR II/Priorix) 05/14/2009,11/18/2007 PNEUMOCOCCAL CONJUGATE PCV 7 11/18/2007,11/22/19 06,2004 TDAP 11/08/2016 Varicella (Varivax), Live Vaccine 05/14/2009, Family History Medical History Relation Name Comments [...] 06/05/2019 10:59 AM EDT Plan of Treatment Upcoming Encounters Date Type Department Care Team (Late st Contact Info) Description 12/16/2024 10:00 AM EDT Office Visit [facility] [address] [place] [id number] Lolita Cruz FNP-C [address] [place] [address] Health Maintenance Due Date Last Done Comments Anxiety Screening 2004 Hepatitis C Screening 2004 Tobacco Screening 2004 HIV Screening 2019 Hypertension Screening (#1) 06/04/2022 Imm-Pneumococcal (1 of 2 - PCV) 2023 11/18/2007, 11/21/2005, 2004 Mip-EGCPH-63 ( season) 2024 Imm-Influenza (#1) 2024 06/05/2019, 0 04/25/2018, 11/08/2016, Additional history exists Alcohol and Drug Screen 08/06/2024 06/05/2019, 04/25 Depression Annual Screen 08/06/2024 06/06/2019 Imm-DTaP/Tdap/Td (8 - Td or Tdap) 01/30/2034 01/31/2024, 11/08/2016, 12/10/2008, Additional history exists Imm-Hepatitis B Completed 04/18/2005, 12/04, 2004 Imm-Hepatitis A Completed 05/29/2008, 11/18/2007 Imm-MMR Completed 05/14/2009, 11/18/2007 Imm-Varicella Completed 05/14/2009, 05/29/2008 Imm-HPV Completed 04/25/2018, 11/08/2016 [facility] Care Teams Cytopathologist Relationship Specialty Start Date End Date Lolita Cruz FNP-C [address] [place] [address] PCP - General Internal Medicine 01/04/24
[2024-12-07 21:45] LABS: MANUAL DIFF FLAG NO
[2024-12-07 21:50] LABS: Basophils Absolute Auto 0.1 X10*3/uL (0.0-0.2); Basophils Percent Auto 1.2 % (0-2); Eosinophils Absolute Auto 0.1 X10*3/uL (0.0-0.4); Eosinophils Percent Auto 2.7 % (0-4); Hemoglobin 15.6 g/dl (14.0-18.0); Imm Gran Abs Auto 0.01 X10*3/uL (0.00-0.03); Imm Gran Pct Auto 0.2 % (0.0-0.4); Lymphocytes Absolute Auto 2.3 X10*3/uL (1.2-4.9); Lymphocytes Percent Auto 44.9 % (20-40); Mean Corpuscular HGB Conc 35.5 g/dl (31.0-36.0); Mean Corpuscular Hemoglobin 29.9 pg (27.0-33.0); Mean Corpuscular Volume 84.3 fL (80.0-98.0); Monocytes Absolute Auto 0.5 X10*3/uL (0.1-1.2); Monocytes Percent Auto 9.3 % (2-11); Neutrophils Absolute Auto 2.2 x10*3/uL (2.0-8.3); Neutrophils Percent Auto 41.7 % (45-73); Platelet Count 196 X10*3/uL (160-400); Red Blood Count 5.22 X10*6/uL (4.60-5.80); Red Cell Distribution Width 12.6 % (11.0-16.0); White Blood Count 5.2 X10*3/uL (4.8-10.8)
[2024-12-07 21:57] LABS: Appearance Urine Clear; Color Urine Yellow; Glucose Urine UA Negative (Negative); Leukocyte Esterase Urine Small (1+) (Negative); Nitrite Urine Negative (Negative); PH 7.5 (5.0-9.0); UMIC TRIGGER UACC YES; Urine Blood Negative (Negative); Urine Ketones Trace mg/dL (Negative); Urine Protein Negative (Neg-Trace)
[2024-12-07 22:01] LABS: Alanine Aminotransferase 26 U/L (0-40); Albumin Level 4.7 g/dL (3.5-5.0); Alkaline Phosphatase 81 U/L (39-117); Anion Gap 13 (12-20); Aspartate Amino Transferase 26 U/L (5-37); Bilirubin Direct 0.2 mg/dL (0.0-0.5); Bilirubin Total 0.6 mg/dL (0.0-1.0); Blood Urea Nitrogen 10 mg/dL (9-16); Calcium 10.2 mg/dL (8.4-10.2); Carbon Dioxide 27 mmol/L (22-29); Chloride 104 mmol/L (96-108); Estimated Glomerular Filt Rate > 60; Glucose Random 95 mg/dL (60-115); Lipase 17 U/L (8-78); Potassium 4.2 mmol/L (3.3-5.1); Sodium 140 mmol/L (135-145); Total Protein 7.7 g/dL (6.5-8.0)
[2024-12-07 22:07] LABS: Bacteria Urine None Seen (None Seen); Hyaline Casts Urine 0-2 /LPF (0-2); RBC Urine 0-2 /HPF (0-2); Squamous Epithelial Cell Urine 0-2 /HPF (0-2); UACC Culture Trigger YES
--- NOTE | 2024-12-07 23:40 | ED_ITS ---
HPI - Abdominal Pain General Chief Complaint: Abdominal Pain Stated Complaint: stomach pain Time Seen by Provider: 12/07/24 22:04 Source: patient Mode of arrival: ambulatory Limitations: no limitations History of Present Illness ED Provider: Kelly Brooks NP HPI narrative: Patient is a 19-year-old male who presents emergency department for evaluation, diffuse lower abdominal pain few episodes of diarrhea this evening. No hematochezia or melena. No associated nausea or vomiting. No fevers or chills. No known sick contacts. Denies recent antibiotic usage. Related Data Previous Rx's ?Medication ?Instructions ?Recorded cephalexin 500 mg capsule 500 mg PO BID 7 days #14 caps 02/02/24 ondansetron 4 mg disintegrating 4 mg PO Q8H PRN nausea and 02/22/24 tablet vomiting #20 tabs ibuprofen 600 mg tablet 600 mg PO Q6H PRN fever or pain 04/27/24 #30 tabs benzocaine 15 mg-menthol 2.6 mg 1 cayetano mucous membrane Q2-4H PRN 10/11/24 lozenges (Cepacol Sore Throat sore throat #16 ea (benzocaine-menthol)) Allergies Allergy/AdvReac Type Severity Reaction Status Date / Time No Known Allergies Allergy Verified 12/07/24 21:17 Review of Systems Review of Systems Yes all other systems are reviewed and are negative [facility] Past Medical History Attestation statement: The following information was validated with the patient. Source: old records reviewed Medical History No pertinent past medical history Social History Social History Patient Tobacco Use Status: Never used Tobacco Smoked in Last 30 Days: No Use of substances other than those prescribed or required for medical reasons: No Substance Use Type: Marijuana Advance Directives: No Advance Directives Information Provided: No Do you have a plan to hurt others: No Plan Physical Exam ED Vital Signs: Vital Signs - 24 hr 12/07/24 21:15 Temperature 85.5 F L Pulse Rate 67 Respiratory Rate 18 Blood Pressure 120/63 Pulse Oximetry 98 Oxygen Delivery Method Room Air BMI result Body Mass Index 27.0 Appearance: Alert.?Oriented to person, place and time. No acute distress.?Normal affect. CVS: Heart sounds normal. Normal heart rate and rhythm.? Pulses normal.?? Respiratory: No respiratory distress.? Lung sounds clear to auscultation bilaterally?? Abdomen: Soft and non-tender. Normoactive bowel sounds. Skin: Skin warm and dry.? Normal skin color.? Neuro: Moves all extremities spontaneously. Sensation intact bilaterally. Ambulates with normal steady gait. Medical Decision Making Medical Decision Making [facility] Narrative: Patient is a 19 old male with no reported past medical history presenting for lower abdominal pain/cramping and diarrhea no nausea or vomiting. Benign examination. Nontoxic, afebrile initial nursing triage reveals attempts of 85.5, this was entered in error, 96.5 my evaluation. Labs obtained, nursing triage CBC without leukocytosis thrombocytopenia. No electrolyte derangement. No LEIDA. Feels he is and lipase unremarkable. Urinalysis low compelling evidence of infection. Presenting factor patient's room to discuss findings, patient not found room, nursing staff at advised me they believe he may have left prior to completing treatment within the past hour. Differential Diagnosis Differential Diagnoses: The differential diagnosis associated with the presentation includes (Gastroenteritis, viral syndrome, low suspicion for acute surgical abdomen based on exam findings) Lab Data [facility] Lab Attestation statement: I reviewed the patient's lab results. (See narrative above) 12/07/24 21:40 12/07/24 21:40 Labs: Lab Results 12/07/24 Range/Units 21:40 WBC 5.2 (4.8-10.8) X10*3/uL RBC 5.22 (4.60-5.80) X10*6/uL Hgb 15.6 (14.0-18.0) g/dl Hct 44.0 (42.0-52.0) % MCV 84.3 (80.0-98.0) fL MCH 29.9 (27.0-33.0) pg MCHC 35.5 (31.0-36.0) g/dl RDW 12.6 (11.0-16.0) % Plt Count 196 (160-400) X10*3/uL MPV 13.0 H (9.4-12.4) fL Immature Gran % (Auto) 0.2 (0.0-0.4) % Neut % (Auto) 41.7 L (45-73) % Lymph % (Auto) 44.9 H (20-40) % [place] % (Auto) 9.3 (2-11) % Eos % (Auto) 2.7 (0-4) % Baso % (Auto) 1.2 (0-2) % Lymph # (Auto) 2.3 (1.2-4.9) X10*3/uL [place] # (Auto) 0.5 (0.1-1.2) X10*3/uL Eos # (Auto) 0.1 (0.0-0.4) X10*3/uL Baso # (Auto) 0.1 (0.0-0.2) X10*3/uL Abs Immat Gran (auto) 0.01 (0.00-0.03) X10*3/uL Absolute Neuts (auto) 2.2 (2.0-8.3) x10*3/uL Absolute Nucleated RBC 0.000 (0.0-0.012) X10*3/uL Nucleated RBC % (auto) 0.0 (0.0-0.2) /100WBC Sodium 140 (135-145) mmol/L Potassium 4.2 (3.3-5.1) mmol/L Chloride 104 (96-108) mmol/L Carbon Dioxide 27 (22-29) mmol/L Anion Gap 13 (12-20) BUN 10 (9-16) mg/dL Creatinine 0.76 (0.5-1.4) mg/dL Estim Creat Clear Calc 160.0 Estimated GFR > 60 Random Glucose 95 (60-115) mg/dL Calcium 10.2 (8.4-10.2) mg/dL Total Bilirubin 0.6 (0.0-1.0) mg/dL Direct Bilirubin 0.2 (0.0-0.5) mg/dL AST 26 (5-37) U/L ALT 26 (0-40) U/L Alkaline Phosphatase 81 (39-117) U/L Total Protein 7.7 (6.5-8.0) g/dL Albumin 4.7 (3.5-5.0) g/dL Lipase 17 (8-78) U/L Urine Color Yellow Urine Appearance Clear Urine pH 7.5 (5.0-9.0) Ur Specific Staples 1.020 (1.005-1.025) Urine Protein Negative (Neg-Trace) mg/dL Urine Glucose (UA) Negative (Negative) mg/dL Urine Ketones Trace (Negative) mg/dL Urine Blood Negative (Negative) Urine Nitrite Negative (Negative) Ur Leukocyte Esterase Small (1+) H (Negative) Urine RBC 0-2 (0-2) /HPF Urine WBC 6-10 H (0-5) /HPF Ur Squamous Epith Cells 0-2 (0-2) /HPF Urine Bacteria None Seen (None Seen) Hyaline Casts 0-2 (0-2) /LPF External Record Review External record reviewed: Outpatient record Discharge Plan Discharge Clinical Impression: Abdominal pain, Diarrhea Patient Disposition: Left W/O Completing Treatment Prescriptions: No Action cephalexin 500 mg capsule 500 mg PO BID 7 Days Qty: 14 0RF ibuprofen 600 mg tablet 600 mg PO Q6H PRN (Reason: fever or pain) Qty: 30 0RF Cepacol Sore Throat (bogdan-men) 15-2.6 mg lozenge 1 cayetano mucous membrane Q2-4H PRN (Reason: sore throat) Qty: 16 0RF ondansetron 4 mg tablet,disintegrating 4 mg PO Q8H PRN (Reason: nausea and vomiting) Qty: 20 0RF Discharge Date/Time: 12/08/24 00:07
--- NOTE | 2024-12-08 00:10 | PC.NURSE ---
upon this RN taking over at 23:15 pt no longer in room, unsure if pt left prior to completing tx
== END 2024-12-08 00:07 | disposition left against medical advice (07) ==
PROVIDERS: Emergency Provider Emergency Medicine
DX: R10.30 Lower abdominal pain, unspecified (principal); R19.7 Diarrhea, unspecified; Z79.899 Other long term (current) drug therapy
CPT/HCPCS: 36415; 80048; 80076; 81001; 81003; 83690; 85025; 87086; 99283; 99284

== ENCOUNTER 2025-02-12 12:35 | Emergency (ER) | payer MEDICAID, SELFPAY ==
--- OUTSIDE RECORDS SUMMARY | 2025-02-12 14:34 | XMS_ITS | Encounter Summary ---
Author Organization [facility] Address [address] [place] [address] Care Team Providers Care Rand Sewer Name Role Phone Lolita Cruz-C Primary Care Provider [phone] Reason for Visit * Reason Comments Correspondence lv, 1st no show sen t for date 02/08/18 Encounter Details Date Type Department Care Team ([facility] st Contact Info) Description 02/12/2018 Interim Notes [facility] [address] [place] [phone] [place] [address] [place] [id number] Social History Tobacco Use Types Packs/Day Years Used Date Smoking Tobacco: Never Smokeless Tobacco: Never Alcohol Use Standard Drinks/Week Comments No 0 (1 standard drink = 0.6 oz pur e alcohol) Sex and Gender Information Value Date Recorded Sex Assigned at Male 12/16/2024 8:34 AM PDT Legal Sex Male 11:36 AM PDT Gender Identity Male 12/16/2024 8:34 AM PDT Sexual Orientation Straight 12/16/2024 8: 34 AM PDT documented as of this encounter Plan of Treatment Not on file documented as of this encounter Visit Diagnoses Not on filedocumented in this encounter Care Teams Rand Sewer Relationship Specialty Start Date End Date Lolita Cruz FNP-C [address] [place] [phone] PCP - General Internal Medicine 01/04/24 documented as of this encounter
== END 2025-02-12 14:30 | disposition left against medical advice (07) ==
PROVIDERS: Emergency Provider Emergency Medicine
DX: Z53.21 Procedure and treatment not carried out due to patient leaving prior to being seen by health care provider (principal); J02.9 Acute pharyngitis, unspecified; R09.89 Other specified symptoms and signs involving the circulatory and respiratory systems